=== PATIENT | female | born 1965 | race Caucasian/White ===

== ENCOUNTER 2022-06-22 09:53 | Emergency (ER) | payer OTHER, SELFPAY ==
[2022-06-22 10:01] VITALS: BP 132/76; PULSE 117; RESP 20; TEMP 36.7; O2SAT 98
--- NOTE | 2022-06-22 10:47 | ED.SKABFB ---
HPI - Skin/Abscess/Foreign Bdy General Chief complaint: Skin/Abscess/Foreign Body Stated complaint: ?abscess to R axilla Time Seen by Provider: 06/22/22 09:59 History of Present Illness HPI narrative: Patient is a 57-year-old female here for evaluation of a lesion to her right axilla that developed about a week ago. She states that the area is tender to palpation, warm and red. She states that she had a friend poked the area with a needle and no fluid returned came out. She presents today due to increased pain and swelling around the lesion. She has had 1 abscess in the past on her leg, but denies history of axillary abscesses for hidradenitis suppurativa. She has a history of diabetes. No fevers, nausea, vomiting today. Related Data Allergies Allergy/AdvReac Type Severity Reaction Status Date / Time No Known Allergies Allergy Verified 06/22/22 10:03 Review of Systems Review of Systems: Gen: Denies fevers or chills Eyes: Denies eye pain or visual change ENT: Denies congestion Respiratory: Denies shortness of breath or cough CV: Denies chest pain or palpitations GI: Denies abdominal pain nausea, emesis or diarrhea : denies burning, urgency, frequency or hematuria Musculoskeletal: Denies back pain or muscle pain Neuro: Denies numbness, tingling, weakness or focal weakness Skin: Reports lesion to right axilla Except as documented, all other systems reviewed and negative Exam Narrative: Gen: Alert, oriented, no acute distress Eyes: EOMI, no icterus Pulm: Respirations even and unlabored, symmetric thorax expansion, no audible stridor or visible cyanosis CV: Regular rate per telemetry GI: No distension, no voluntary/involuntary guarding Neuro: AOx4, moves all extremities without apparent difficulty or weakness, follows commands Skin: Patient has a 4 cm area of erythema to right axilla, with a central area of induration and fluctuance. Center area of the lesion has opened and crusted over. Psych: Normal mood/affect, insight/judgement good, adequate fund of knowledge, recent/remote memory intact Course Vital Signs Vital signs: Vital Signs Temperature 98.0 F 06/22/22 10:01 Pulse Rate 117 H 06/22/22 10:01 Respiratory Rate 20 06/22/22 10:01 Blood Pressure 132/76 06/22/22 10:01 Pulse Oximetry 98 06/22/22 10:01 Oxygen Delivery Room Air 06/22/22 10:01 Temperature 98.0 F 06/22/22 10:01 Pulse Rate 107 H 06/22/22 12:21 Respiratory Rate 16 06/22/22 12:21 Blood Pressure 122/89 06/22/22 12:21 Pulse Oximetry 98 06/22/22 12:21 Oxygen Delivery Room Air 06/22/22 10:01 Procedures Abscess I/D upper extremity: Date of Incision: 06/22/22 Time of Incision: 11:45 Side (if applicable): right Sedation/analgesia: none Local Anesthetic: lidocaine 1% and with epi Amount of anesthesia used (mL): 5 Technique: incised with #11 blade and probed loculations Amount of fluid expressed (mL): 3 Irrigation: No Packing used?: none I&D Results: Pus and Blood Abcess I&D Additional Comments: cleansed with Betadine prior to incision MDM - Skin/Abscess/Foreign Bdy MDM Narrative Medical decision making narrative: Patient is a patient in your female here for evaluation of what appears to be an abscess to her right axillary region. Here, she is nontoxic-appearing, she is slightly tachycardic, but afebrile. No systemic symptoms. [id number] ultrasound reveals a small pocket of possible fluid collection, so it was decided to proceed with an I&D. The area was anesthetized with 1% lidocaine with epinephrine, patient was provided with [place] prior. Single stab incision was made with return of purulent material and blood. Patient's pain improved afterwards. She will be discharged on oral antibiotics, and was given reasons to return to the ED. Discharge Plan Discharge Clinical Impression: Abscess of axilla, right Patient Disposition: Riki
[2022-06-22] MEDS: HYDROcodone/acetaminophen (*CRX) 5-325 MG TABLET 1 TAB PO (11:10)
[2022-06-22] MEDS: LIDOCAINE/PRILOCAINE CREAM 2.5-2.5% TUBE 1 EACH TOPICAL (11:10)
--- NOTE | 2022-06-22 11:15 | PC.NURSE ---
Patient report received from WOLF Yu. All questions answered and care of patient assumed. Patient resting quietly in stretcher with call-light within reach and spouse at bedside. I&D kit at bedside. Lido applied. Will continue to address needs as they arise.
[2022-06-22] MEDS: LIDO 1%/EPINEPHRINE 1:100,000 20 ML VIAL 5 ML INFILTRATE (11:38)
[2022-06-22 12:21] VITALS: BP 122/89; PULSE 107; RESP 16; O2SAT 98
== END 2022-06-22 12:23 | disposition home or self-care (01) ==
PROVIDERS: Emergency Provider Emergency Medicine; PCP Physician Assistant
DX: L02.411 Cutaneous abscess of right axilla (principal)
CPT/HCPCS: 10060; 99283; A9270

== ENCOUNTER 2025-03-04 12:29 | Outpatient (CLI) | payer OTHER, SELFPAY ==
--- OUTSIDE RECORDS SUMMARY | 2025-03-04 12:33 | XMS_ITS | CONTINUITY OF CARE DOCUMENT ---
Author Name renata yanez Address Unknown Organization [facility] Address [address] [place] [address] Phone [phone] Care Team Providers Care Deli Associate Name Role Phone Memo Sargent MD Unavailable SARI PAYTON MD Unavailable Brii Smith MD Unavailable [phone] PROBLEMS Condition Status Date Provider Notes HYPERTENSION-01/08 ECHO EF 60 active ? Mini Pitt MD DIABETES MELLITUS active Lexie Pitt MD HYPERCHOLESTEROLEMIA active Lexie Pitt MD CHEST PAIN-01/08 NUC NL active ? Lexie nina MD ASTHMA-01/08 PULM FUNC MILD RESTRICTION active ? Lexie Pitt MD ANEMIA - IRON DEFICIENT active Lexie gallegos MD RENAL ARTERY STENOSIS 01/08 R EN DUP NL completed - Anna Ventimiglia HIDE BUFFER BARBARA, adult active Anna Ventimiglia HIDE BUFFER Peripheral artery disease active Anna Sea timiglia HIDE BUFFER Nicotine dependence active Anna Ventimigl ia HIDE BUFFER Obesity active Anna Ventimiglia HIDE BUFFER Claudication active Memo Sargent MD ENCOUNTERS Date Type Provider Location Encounter Diag nosis 0 - 0 In-person encounter Office Visit Memo Sargent MD [facility] Claudication 8 - 9 In-person encounter Office Visit Memo Sargent MD [facility] RENAL ARTERY STENOSIS 01/08 VON DUP NLOSA, adultPeripheral artery diseaseNicotine dependenceObesity 9 - 1 In-person encounter Office Visit Lexie Pitt MD [facility] HYPERTENSION-01/08 ECHO EF 60CHEST PAIN-01/08 NUC NLASTHMA-01/08 PULM FUNC MILD RESTRICTION 9 - 0 In-person encounter Office Visit Lexie Pitt MD [facility] HYPERTENSION-01/08 ECHO EF 60DIABETES MELLITUSHYPERCHOLESTEROLEMIACHEST PAIN-01/08 NUC NLASTHMA-01/08 PULM FUNC MILD RESTRICTIONANEMIA - IRON DEFICIENT VITAL SIGNS Date Observation Value Provider Body Mass Index (Ratio) 42.60 kg/m2 Oxana Sargent MD blood pressure, cuff size large Colt rr blood pressure, diastolic 99 mm[Hg] Ja rret blood pressure, systolic 151 mm[Hg] Jar ret pulse rate 88 /min Iván oxygen saturation, oximetry 99 % [facility] respiratory rate E&M 16 /min Iván weight E&M 256 [lb_av] [facility] y height E&M 65 [in_i] [facility] y Body Mass Index (Ratio) 42.76 kg/m2 Oxana Sargent MD blood pressure, diastolic 89 mm[Hg] Li nkLogic blood pressure, systolic 154 mm[Hg] Geno kLogic blood pressure, cuff size large Colt rret blood pressure, diastolic 89 mm[Hg] Ja rret blood pressure, systolic 154 mm[Hg] Jar ret pulse rate 90 /min oxygen saturation, oximetry 99 % respiratory rate E&M 16 /min weight E&M 257 [lb_av] y height E&M 65 [in_i] Iván y Body Mass Index (Ratio) 49.27 kg/m2 Caldera i Ria blood pressure, diastolic 84 mm[Hg] Ke rri Ria blood pressure, systolic 132 mm[Hg] Geno ri Ria pulse rate 94 /min Yasmeen Alfredo romeer oxygen saturation, oximetry 98 % Yasmeen Ria respiratory rate E&M 20 /min Yasmeen G calos weight E&M 295 [lb_av] Yasmeen Alfredo lder Body Mass Index (Ratio) 49.10 kg/m2 Vashti Godoy blood pressure, diastolic, left arm 86 mm [Hg] Bere Godoy blood pressure, systolic, left arm 142 mm [Hg] Bere Godoy blood pressure, diastolic, right arm 82 m m[Hg] Bere Godoy blood pressure, systolic, right arm 143 m m[Hg] Bere Godoy blood pressure, diastolic 86 mm[Hg] Na maria del carmen Godoy blood pressure, systolic 142 mm[Hg] Farzana iban Godoy pulse rate 87 /min Bere Godoy oxygen saturation, oximetry 98 % Bere Godoy respiratory rate E&M 20 /min Bere Godoy weight E&M 294 [lb_av] Bere Godoy height E&M 65 [in_i] Bere Godoy ALLERGIES Allergy Name Onset Date Reaction Criticality Status MUSHROOMS High Criticality active RESULTS Date Observation Value Provider Reference Range Interpretation Location B-type natriuretic peptide <5.0 [facility] alanine [facility]), [facility] 174 [facility] aspartate aminotransferase (SGOT), serum 356 1/L [facility] creatinine, serum 1.07 mg/dL Eunice Murphy potassium, serum 3.5 mmol/L [facility] sodium, serum 144 mmol/L Eunice Murphy HISTORY OF MEDICATION USE Medication Status Instructions Dates Provider Indications Com ments buspirone 10 mg tablet active Anna Ventimiglia HIDE BUFFER metformin 1,000 mg tablet active Anna Ventimiglia HIDE BUFFER pioglitazone 45 mg tablet active Anna Ventimiglia HIDE BUFFER venlafaxine 150 mg capsule,extended release 24hr active Anna Ventimiglia HIDE BUFFER Jardiance 25 mg tablet active Anna Ventimiglia HIDE BUFFER Farxiga 10 mg tablet active Anna Ventimiglia HIDE BUFFER naproxen 500 mg tablet active Anna Ventimiglia HIDE BUFFER Januvia 100 mg tablet active Anna Ventimiglia HIDE BUFFER simvastatin 20 mg tablet active Anna Ventimiglia HIDE BUFFER dicyclomine 20 mg tablet active Anna Ventimiglia HIDE BUFFER chlorthalidone 25 mg tablet active Anna Ventimiglia HIDE BUFFER glipizide 10 mg tablet active Anna Ventimiglia HIDE BUFFER omeprazole 20 mg capsule,delayed release(DR/EC) active Anna Ventimiglia HIDE BUFFER gabapentin 300 mg capsule active Anna Ventimiglia HIDE BUFFER cyclobenzaprine 10 mg tablet active Anna Ventimiglia HIDE BUFFER losartan 100 mg tablet active Anna Ventimiglia HIDE BUFFER simvastatin 20 mg tablet completed by mouth every night - Anna Ventimiglia HIDE BUFFER metformin 500 mg tablet completed 1 twice a day - Anna Ventimiglia HIDE BUFFER PROAIR HFA 108 completed as needed - Anna Ventimiglia HIDE BUFFER felodipine 10 mg tablet extended release 24 hr completed 1 once a day - Anna Ventimiglia HIDE BUFFER Celexa 40 mg tablet completed 1 once a day - Anna Ventimiglia HIDE BUFFER MULTIVITAMINS ORAL CAPSULE completed 1 tablet once a day - Anna Ventimiglia HIDE BUFFER chlorthalidone 25 mg tablet completed once a day - Anna Ventimiglia HIDE BUFFER naproxen 500 mg tablet completed as needed - Anna Ventimiglia HIDE BUFFER SOCIAL HISTORY Date Observation Value Provider personal history of marijuana use no Memo Sargent MD drug use no Memo Sargent MD alcohol use no Memo Sargent MD smoking, year quit 2009 Memo bah MD smoking history, tot al pack/year 80 Memo Sargent MD smoking history, tot al pack/day 1 Memo Sargent MD cigarette use yes Memo Beth smoking status Current every day smoker U mat Sargent MD personal history of marijuana use no Anna Ventimiglia HIDE BUFFER drug use no Anna Ventimig cherri HIDE BUFFER smoking history, tot al pack/day 1 Anna Ventimiglia HIDE BUFFER cigarette use yes Anna Ventimi glia HIDE BUFFER alcohol use no Anna Ventimig cherri HIDE BUFFER smoking status Current every day smoker A ginger Ventimiglia [facility] social history reviewed E&M reviewed Andres Laws RN smoking history, tot al pack/year 80 Yasmeen Rollins social history E&M Marital Statu s: E thnicity: Lexie Pitt MD social history reviewed E&M reviewed Lexie Pitt MD smoking history, tot al pack/year 40 Bere Godoy smoking, year quit 2009 Bere barker smoking status former smoker Bere gonzalez MENTAL STATUS Date Observation Value Provider assessment of judgme nt and insight E&M Alert and oriented to time, place and person. Mood and affect are normal. Andres Laws RN assessment of judgme nt and insight E&M Alert and oriented to time, place and person. Mood and affect are normal. Lexie Pitt MD FAMILY HISTORY Family Member Condition Mother Stroke/CVA Mother [place] female <65 INSURANCE PROVIDERS Payer name Policy type / Coverage type [place] [employer] Medicaid [id number] ADVANCE DIRECTIVES Name Date DISCUSSED - NO DECISION MADE TREATMENT PLAN Date Name Performer Cardiology:CT-AIF R ight Lower Extremity: 1 . Patent inflow 2 . Patent outflow 3 . Patent 3 vessel runoff L eft Lower Extremity: 1 . Patent inflow 2 . Patent outflow 3 . Patent 3 vessel runoff A bdomen/Pelvis: 1 . No acute abdominal pelvic process. 2 . Hepatic steatosis, hepatomegaly and possible early changes of cirrhosis. At present I would not continue with w/u as the CT-AIF was normal R ecommend she get neurology w.u Memo Sargent MD Cardiology Memo Sargent MD Cardiology Memo Sargent MD Cardiology:BP 154/89 c ontinue present medication regimen W ill trend and if remains elevated will adjust medication T he following medications were removed from the medication list: Chlorthalidone 25 Mg Tablet (Chlorthalidone) ..... Once a day Felodipine 10 Mg Tablet Extended Release 24 Hr (Felodipine) ..... 1 once a day Her updated medication list for this problem includes: Chlorthalidone 25 Mg Tablet (Chlorthalidone) Losartan 100 Mg Tablet (Losartan) [facility] Cardiology:She has p ain in the left groin at rest and with ambulation S he had JR done that showed severe PAD W ill do CT AIF and f/u after [facility] Cardiology:weight loss encourage d [facility] Cardiology:on multip le medications and insulin m anaged by primary team T he following medications were removed from the medication list: Metformin 500 Mg Tablet (Metformin) ..... 1 twice a day Her updated medication list for this problem includes: Metformin 1,000 Mg Tablet (Metformin) Pioglitazone 45 Mg Tablet (Pioglitazone) Jardiance 25 Mg Tablet (Empagliflozin) Farxiga 10 Mg Tablet (Dapagliflozin propanediol) Januvia 100 Mg Tablet (Sitagliptin phosphate) Glipizide 10 Mg Tablet (Glipizide) Losartan 100 Mg Tablet (Losartan) Anna Ventimiglia HIDE BUFFER Cardiology:planned f or upcoming labs o n statin T he following medications were removed from the medication list: Simvastatin 20 Mg Tablet (Simvastatin) ..... By mouth every night & #13;Her updated medication list for this problem includes: Simvastatin 20 Mg Tablet (Simvastatin) Anna Ventimiglia [facility] Cardiology:unable to tolerate cp ap Anna Ventimiglia [facility] Cardiology:cessation encouraged Anna Ventimiglia HIDE BUFFER Date Name CT Angio AIF (Abd, l ower extremities) Sleep Study Renal Artery Duplex Full PFT STR - Adenosine Complete Echo HISTORY OF PROCEDURES Procedure Date Procedure Name Provider Procedure Notes S tatus EKG Memo Sargent MD completed EKG Lexie Pitt MD complet ed DLCO - 29223 Lexie Pitt MD compl eted FRC - 55590 Lexie Pitt MD comple sofi FVC - 42247 Lexie Pitt MD comple sofi EKG Lexie Pitt MD complet ed
--- OUTSIDE RECORDS SUMMARY | 2025-03-04 12:34 | XMS_ITS | Clinical Summary ---
Author Organization [facility] Address [address] [place] [address] Care Team Providers Care Engagement Specialist Name Role Phone Jhonny Rojas Primary Care Provider + Allergies No known active allergies Medications benzocaine 20 % topical spray Apply topically 4 (four) times daily as needed for Pain. 57 g Active Social History Tobacco Use Types Packs/Day Years Used Date Smoking Tobacco: Every Day Cigarettes Alcohol Use Standard Drinks/Week Comments Yes 0 (1 standard drink = 0.6 oz pur e alcohol) Comments No Sex and Gender Information Value Date Recorded Sex Assigned at Not on file Legal Sex Female 2:08 PM CDT Gender Identity Not on file Sexual Orientation Not on file Last Filed Vital Signs Vital Sign Reading Time Taken Comments Blood Pressure 114/57 07/29/2021 5:28 PM CDT Pulse 76 07/29/2021 5:28 PM CDT Temperature 36.7 C (98 F) 07/29/2021 2:15 PM CDT Respiratory Rate 16 07/29/2021 5:28 PM CDT Oxygen Saturation 98% 07/29/2021 5:28 PM CDT Inhaled Oxygen Concentration - - Weight 123.4 kg (272 lb) 07/29/2021 2:15 PM CDT Height 165.1 cm (5' 5 ) 07/29/2021 2:15 PM CDT Body Mass Index 45.26 07/29/2021 2:15 PM CDT Plan of Treatment Health Maintenance Due Date Last Done Comments Cervical Cancer Screening Pa p Smear (Age 30 to 64) Every 3 Years 1963 Colorectal Cancer Screening Colonoscopy (10 Years) 1963 Annual Physical 1966 Hepatitis C 1981 Cervical Cancer Screening Quintin p with HPV Testing (Age 30 to 64) Every 5 Years 1993 Cervical Cancer Screening wi th HPV 1993 Mammogram Screening 2003 Zoster Vaccines (1 of 2) 2013 DTaP, Tdap and Td Vaccines ( 1 - Tdap) 09/29/2014 09/28/2014, 09/28/2014 Pneumococcal Vaccine: 50+ Years (2 of 2 - PCV) 09/28/2015 09/28/2014 COVID-19 Vaccine (3 - 2023-2 5 season) 2024 04/04/2021, 03/01/2021 RSV Immunization or 60+ Years (1 - 1-dose 75+ series) 2038 Meningococcal B Vaccine Aged Out No l onger eligible based on patient's age to complete this topic Meningococcal Vaccine Aged Out No praveena william eligible based on patient's age to complete this topic RSV Immunizations Under 20 Months Aged Out No longer eligible b ased on patient's age to complete this topic Insurance [employer] Care Teams Engagement Specialist Relationship Specialty Start Date End Date Jhonny Rojas PA PCP - General PHYSICIAN SENIOR GRAPHIC DESIGNER 07/29/21
--- OUTSIDE RECORDS SUMMARY | 2025-03-04 12:34 | XMS_ITS | Data Portability ---
Author Organization [facility] [place] [facility] Address [address] [place] [address] Care Team Providers Care Rating Officer Name Role Phone BRII SMITH Primary Care Provider Assessment No assessment recorded. Plan of Treatment Reminders Order Date Submit Date Provider Last Modified By Organization Details Last Modified Time Details Appointments ANY 30 2024 02:00P M Brii Smith MD Not available Not available Not available Lab albumin/c reatinine , mass ratio, urine 2024 025 [facility], [address] [place] [address], [address], [place], [address], 02/23/2025 12:50:49 lipid panel, serum 2024 025 [facility], [address] [place] [address], [address], [place], [address], 02/23/2025 12:50:49 CMP, serum or plasma 2024 025 [facility], [address] [place] [address], [address], [place], [address], 02/23/2025 12:50:48 albumin/c reatinine , mass ratio, urine 2024 025 [facility], [address] [place] [address], [address], [place], [address], 03/03/2025 10:21:50 lipid panel, serum 2024 025 [email or web address], [address], [address], [place], [address], 01/13/2025 10:57:50 CMP, serum or plasma 2024 025 [email or web address], [address], [address], [place], [address], 01/13/2025 10:57:50 lipid panel, serum 2023 024 [facility], [address], [address], [place], [address], 07/25/2024 09:13:34 HbA1c (hemoglob in A1c), blood 2023 024 [email or web address] In-Office Order, Internal Use Only DO Not Attach Compendium DO Not Attach Compendium, Do Not Delete/merge, [id number] 07/22/2024 15:57:23 CMP, serum or plasma 2023 024 [facility], [address], [address], [place], [address], 07/25/2024 09:13:35 albumin/c reatinine , mass ratio, urine 2023 024 [facility], [address], [address], [place], [address], 07/25/2024 09:13:33 CMP, serum or plasma 2023 024 [facility], [address], [address], [place], [address], 04/23/2024 06:20:04 lipid panel, serum 2023 024 [facility], [address], [address], [place], [address], 04/23/2024 06:20:04 CBC 2023 024 [facility], [address], [address], [place], [address], 04/23/2024 06:20:05 albumin/c reatinine , mass ratio, urine 2023 024 [facility], [address] [facility] [address], [address], [place], [address], 04/23/2024 06:20:03 HbA1c (hemoglob in A1c), blood 2023 024 [email or web address] In-Office Order, Internal Use Only DO Not Attach Compendium DO Not Attach Compendium, Do Not Delete/merge, [id number] 04/21/2024 18:05:45 Referral None recorded. Procedures None recorded. Surgeries None recorded. Imaging audiogram + tympanogr am - ringing in left ear, hearing loss left ear, hearing loss in left ear since baby, ringing for two weeks [address] [facility] (Audiology), [address] [place] [address], [address], 02/23/2025 14:27:23 MRI, lumbar spine, w/o contrast [address] [facility] ([facility] Sched[facility]), [address] [place], [address], 02/16/2025 13:17:42 MAMMO, screening , digital, bilateral 2024 025 [facility] ([facility] Call Scheduling), [address] [place], [address], 12/02/2024 12:36:22 MRI, lumbar spine, w/o contrast 2023 024 [facility] ([facility] Call Scheduling), [address] [place], [address], 11/30/2024 21:39:36 Medication Orders simvastat in 40 mg tablet 2024 025 [facility], [address] [place] [address], [id number], 02/23/2025 14:48:27 Daily-Vit e (with folic acid) 400 mcg tablet 2024 025 [facility], [address] [place] [address], [id number], 02/23/2025 14:41:54 cyclobenz aprine 10 mg tablet 2024 025 [facility], [address] [place] [address], [id number], 03/01/2025 13:34:22 naproxen 500 mg tablet 2024 025 [facility], [address] [place] [address], [id number], 03/01/2025 13:34:24 chlorthal idone 25 mg tablet 2024 025 [facility], [address] [place] [address], [id number], 03/01/2025 13:34:17 losartan 100 mg tablet 2024 025 [facility], [address] [place] [address], [id number], 03/01/2025 13:34:27 potassium chloride ER 10 mEq tablet,ex tended release 2024 025 [facility], [address] [place] [address], [id number], 03/01/2025 13:34:19 buspirone 10 mg tablet 2024 025 [facility], [address] [place] [address], [id number], 03/01/2025 13:34:26 venlafaxi ne ER 150 mg capsule,e xtended release 24 hr 2024 025 [facility], [address] [place] [address], [id number], 03/01/2025 13:34:23 dicyclomi ne 20 mg tablet 2024 025 [facility], [address] [place] [address], [id number], 03/01/2025 13:34:16 famotidin e 20 mg tablet 2024 025 [facility], [address] [place] [address], [id number], 03/01/2025 13:34:23 omeprazol e 20 mg capsule,d elayed release 2024 025 [facility], [address] [place] [address], [id number], 03/01/2025 13:34:21 Farxiga 10 mg tablet 2024 025 [facility], [address] [place] [address], [id number], 03/01/2025 13:34:17 glipizide 10 mg tablet 2024 025 [facility], [address] [place] [address], [id number], 03/01/2025 13:34:18 Januvia 100 mg tablet 2024 025 [facility], [address] [place] [address], [id number], 03/01/2025 13:34:27 pioglitaz one 45 mg tablet 2024 025 [facility], [address] [place] [address], [id number], 03/01/2025 13:34:20 gabapenti n 300 mg capsule 2024 025 [facility], [address] [place] [address], [id number], 03/01/2025 13:34:14 Basaglar KwikPen U-100 Insulin 100 unit/mL (3 mL) subcutane ous 2024 025 [facility], [address] [place] [address], [id number], 02/08/2025 10:01:55 alcohol swabs 2024 025 [facility], [address] [place] [address], [id number], 03/01/2025 13:34:20 Farxiga 10 mg tablet 2024 025 [facility], [address] [place] [address], [id number], 01/26/2025 10:27:35 glipizide 10 mg tablet 2024 025 [facility], [address] [place] [address], [id number], 01/26/2025 10:27:31 Januvia 100 mg tablet 2024 025 [facility], [address] [place] [address], [id number], 02/08/2025 10:01:58 Lantus U-100 Insulin 100 unit/mL subcutane ous solution 2024 025 [facility], [address] [place] [address], [id number], 11/27/2024 15:37:19 metformin 1,000 mg tablet 2024 025 [facility], [address] [place] [address], [id number], 02/23/2025 12:19:03 OneTouch Verio test strips [address] [place] [address] Pharmacy, [address] [place] [address], [id number], 11/27/2024 15:12:07 pioglitaz one 45 mg tablet [address] [place] [address] Pharmacy, [address] [place] [address], [id number], 01/26/2025 10:27:39 famotidin e 20 mg tablet [address] [place] [address] Pharmacy, [address] [place] [address], [id number], 01/26/2025 10:27:45 omeprazol e 20 mg capsule,d elayed release 2024 025 [facility], [address] [place] [address], [id number], 01/26/2025 10:27:31 simvastat in 40 mg tablet 2024 025 [facility], [address] [place] [address], [id number], 03/01/2025 13:34:20 chlorthal idone 25 mg tablet [address] [place] [address] Pharmacy, [address] [place] [address], [id number], 01/26/2025 10:27:40 losartan 100 mg tablet [address] [place] [address] Pharmacy, [address] [place] [address], [id number], 01/26/2025 10:27:44 potassium chloride ER 10 mEq tablet,ex tended release [address] [place] [address] Pharmacy, [address] [place] [address], [id number], 01/26/2025 10:27:38 buspirone 10 mg tablet 2024 025 [facility], [address] [place] [address], [id number], 01/26/2025 10:27:37 venlafaxi ne ER 150 mg capsule,e xtended release 24 hr 2024 025 [facility], [address] [place] [address], [id number], 01/26/2025 10:27:37 gabapenti n 300 mg capsule 2024 025 [facility], [address] [place] [address], [id number], 11/27/2024 15:12:07 Ozempic 0.25 mg or 0.5 mg (2 mg/3 mL) subcutane ous pen injector 2023 024 [facility], [address] [place] [address], [id number], 11/18/2024 16:48:32 Ozempic 0.25 mg or 0.5 mg (2 mg/3 mL) subcutane ous pen injector 2023 025 [facility], [address] [place] [address], [id number], 11/19/2024 10:06:23 Farxiga 10 mg tablet 2023 024 [facility], [address] [place] [address], [id number], 10/22/2024 11:59:27 glipizide 10 mg tablet 2023 024 [facility], [address] [place] [address], [id number], 10/22/2024 11:59:27 Januvia 100 mg tablet 2023 024 [facility], [address] [place] [address], [id number], 10/22/2024 11:59:30 pioglitaz one 45 mg tablet 2023 024 [facility], [address] [place] [address], [id number], 10/22/2024 11:59:26 Lantus U-100 Insulin 100 unit/mL subcutane ous solution 2023 [facility], [address] [place] [address], [id number], 09/17/2024 11:37:08 famotidin e 20 mg tablet 2023 024 [facility], [address] [place] [address], [id number], 10/22/2024 11:59:31 omeprazol e 20 mg capsule,d elayed release 2023 024 [facility], [address] [place] [address], [id number], 10/22/2024 11:59:33 chlorthal idone 25 mg tablet 2023 024 [facility], [address] [place] [address], [id number], 10/22/2024 11:59:28 losartan 100 mg tablet 2023 024 [facility], [address] [place] [address], [id number], 10/22/2024 11:59:31 potassium chloride ER 10 mEq tablet,ex tended release 2023 024 [facility], [address] [place] [address], [id number], 10/22/2024 11:59:26 buspirone 10 mg tablet 2023 024 [facility], [address] [place] [address], [id number], 10/22/2024 11:59:29 venlafaxi ne ER 150 mg capsule,e xtended release 24 hr 2023 024 [facility], [address] [place] [address], [id number], 10/22/2024 11:59:24 gabapenti n 300 mg capsule 2023 024 [facility], [address] [place] [address], [id number], 10/22/2024 11:59:25 Lantus U-100 Insulin 100 unit/mL subcutane ous solution 2023 024 [facility], [address] [place] [address], [id number], 04/21/2024 17:11:25 Farxiga 10 mg tablet 2023 024 [facility], [address] [place] [address], [id number], 09/07/2024 10:29:01 glipizide 10 mg tablet 2023 024 [facility], [address] [place] [address], [id number], 09/07/2024 10:29:03 Januvia 100 mg tablet 2023 024 [facility], [address] [place] [address], [id number], 09/07/2024 10:29:04 metformin 1,000 mg tablet 2023 024 [facility], [address] [place] [address], [id number], 02/23/2025 12:19:03 pioglitaz one 45 mg tablet 2023 024 [facility], [address] [place] [address], [id number], 09/21/2024 10:34:51 famotidin e 20 mg tablet 2023 024 [facility], [address] [place] [address], [id number], 09/21/2024 10:34:50 omeprazol e 20 mg capsule,d elayed release 2023 024 [facility], [address] [place] [address], [id number], 09/21/2024 10:34:53 simvastat in 20 mg tablet 2023 024 [facility], [address] [place] [address], [id number], 11/18/2024 16:40:15 chlorthal idone 25 mg tablet 2023 024 [facility], [address] [place] [address], [id number], 08/21/2024 10:16:59 losartan 100 mg tablet 2023 024 [facility], [address] [place] [address], [id number], 09/07/2024 10:29:04 potassium chloride ER 10 mEq tablet,ex tended release 2023 024 [facility], [address] [place] [address], [id number], 04/21/2024 17:01:26 buspirone 10 mg tablet 2023 024 [facility], [address] [place] [address], [id number], 07/06/2024 11:34:48 venlafaxi ne ER 150 mg capsule,e xtended release 24 hr 2023 [facility], [address] [place] [address], [id number], 07/06/2024 11:34:45 gabapenti n 300 mg capsule 2023 024 [facility], [address] [place] [address], [id number], 07/06/2024 11:34:40 Patient TargetsNo targets recorded. Patient Instructions Encounter Date Encounter Id Patient Instructions Last Modified By Organization Details Last Modified Time 04/21/2024 [id number] A healthy lifestyle: care instructions [email or web address] Not available 04/21/2024 16:30:09 05/25/2024 [id number] A healthy lifestyle: care instructions [email or web address] Not available 05/25/2024 10:03:20 On the date of this encounter, I was immediately available to assist the resident/fellow in the care of the patient, and have reviewed and agree with the resident s findings and plan of care. ~MD jarrett [email or web address] Not available 05/28/2024 01:13:52 Reason for Referral None Reported. Results Created Date Observation Date Name Description Value Unit Range Abnormal Flag Note LastModifiedBy Organization Detail LastModifiedTime 04/21/2004/21/2024 HbA1c (hemo globi n A1c), blood HbA1c 12.0 Not Available In-Office Order Internal Use Only DO Not Attach Compendium DO Not Attach Compendium, Do Not Delete/merge, [id number] 04/21/2024 16:48:10 04/22/2004/23/2024 ALBUM IN/CR EATIN INE RATIO ,URIN E creatinine, urine 111.3 mg/dL notest ab. Not Available [facility] ([facility]) [address] [facility], [place], [address], 04/23/2024 06:20:03 04/22/2004/23/2024 ALBUM IN/CR EATIN INE RATIO ,URIN E albumin, urine 283.0 ug/mL notest ab. Not Available [facility] ([facility]) [address] [place], [address], 04/23/2024 06:20:03 04/22/20 24 04/23/2024 ALBUM IN/CR EATIN INE RATIO ,URIN E alb/creat ratio 254 mg/g_ creat 0-29 above high normal Jessica l: 0 - 29 Moder ately incre ased: 30 - 300 Sever gavin incre ased: >300 Not Available [facility] ([facility]) [address] [place], [address], 04/23/2024 06:20:03 04/22/20 24 04/23/2024 LIPID PANEL cholesterol, total 211 mg/dL 100-19 9 above high normal Not Available [facility] ([facility]) [address] [place], [address], 04/23/2024 06:20:04 04/22/20 24 04/23/2024 LIPID PANEL triglyceride s 477 mg/dL 0-149 above high normal Not Available [facility] ([facility]) [address] [place], [address], 04/23/2024 06:20:04 04/22/20 24 04/23/2024 LIPID PANEL HDL cholesterol 39 mg/dL >39 below low normal Not Available [facility] ([facility]) [address] [place], [address], 04/23/2024 06:20:04 04/22/20 24 04/23/2024 LIPID PANEL VLDL cholesterol cameron 79 mg/dL 5-40 above high normal Not Available [facility] ([facility]) [address] [place], [address], 04/23/2024 06:20:04 04/22/20 24 04/23/2024 LIPID PANEL LDL chol calc ([facility]) 93 mg/dL 0-99 Not Available [facility] ([facility]) [address] [place], [address], 04/23/2024 06:20:04 04/22/20 24 04/23/2024 COMP. METAB OLIC PANEL (14) glucose 231 mg/dL 70-99 above high normal Not Available [facility] ([facility]) [address] [place], [address], 04/23/2024 06:20:04 04/22/20 24 04/23/2024 COMP. METAB OLIC PANEL (14) BUN 26 mg/dL 8-27 Not Available [facility] ([facility]) [address] [place], [address], 04/23/2024 06:20:04 04/22/20 24 04/23/2024 COMP. METAB OLIC PANEL (14) creatinine 2.17 mg/dL 0.57-1 .00 above high normal Not Available [facility] ([facility]) [address] [facility], [place], [address], 04/23/2024 06:20:04 04/22/20 24 04/23/2024 COMP. METAB OLIC PANEL (14) eGFR 25 mL/mi n/1.7 3 >59 below low normal Not Available [facility] ([facility]) [address] [place], [address], 04/23/2024 06:20:04 04/22/20 24 04/23/2024 COMP. METAB OLIC PANEL (14) BUN/creatini ne ratio 12 12-28 Not Available [facility] ([facility]) [address] [place], [address], 04/23/2024 06:20:04 04/22/20 24 04/23/2024 COMP. METAB OLIC PANEL (14) sodium 137 mmol/ L 134-14 4 Not Available [facility] ([facility]) [address] [place], [address], 04/23/2024 06:20:04 04/22/20 24 04/23/2024 COMP. METAB OLIC PANEL (14) potassium 4.5 mmol/ L 3.5-5. 2 Not Available [facility] ([facility]) [address] [place], [address], 04/23/2024 06:20:04 04/22/20 24 04/23/2024 COMP. METAB OLIC PANEL (14) chloride 95 mmol/ L 96-106 below low normal Not Available [facility] ([facility]) [address] [facility] [place], [address], 04/23/2024 06:20:04 04/22/20 24 04/23/2024 COMP. METAB OLIC PANEL (14) carbon dioxide, total 24 mmol/ L 20-29 Not Available [facility] ([facility]) [address] [place], [address], 04/23/2024 06:20:04 04/22/20 24 04/23/2024 COMP. METAB OLIC PANEL (14) calcium 10.2 mg/dL 8.7-10 .3 Not Available [facility] ([facility]) [address] [place], [address], 04/23/2024 06:20:04 04/22/20 24 04/23/2024 COMP. METAB OLIC PANEL (14) protein, total 7.0 g/dL 6.0-8. 5 Not Available [facility] ([facility]) [address] [place], [address], 04/23/2024 06:20:04 04/22/20 24 04/23/2024 COMP. METAB OLIC PANEL (14) albumin 4.2 g/dL 3.8-4. 9 Not Available [facility] ([facility]) [address] [place], [address], 04/23/2024 06:20:04 04/22/20 24 04/23/2024 COMP. METAB OLIC PANEL (14) globulin, total 2.8 g/dL 1.5-4. 5 Not Available [facility] ([facility]) [address] [place], [address], 04/23/2024 06:20:04 04/22/20 24 04/23/2024 COMP. METAB OLIC PANEL (14) bilirubin, total 0.5 mg/dL 0.0-1. 2 Not Available [facility] ([facility]) [address] [place], [address], 04/23/2024 06:20:04 04/22/20 24 04/23/2024 COMP. METAB OLIC PANEL (14) alkaline phosphatase 80 IU/L 44-121 Not Available [facility] ([facility]) [address] [place], [address], 04/23/2024 06:20:04 04/22/20 24 04/23/2024 COMP. METAB OLIC PANEL (14) AST (SGOT) 46 IU/L 0-40 above high normal Not Available [facility] ([facility]) [address] [place], [address], 04/23/2024 06:20:04 04/22/20 24 04/23/2024 COMP. METAB OLIC PANEL (14) ALT (SGPT) 38 IU/L 0-32 above high normal Not Available [facility] ([facility]) [address] [place], [address], 04/23/2024 06:20:04 04/22/20 24 04/22/2024 CBC, PLATE LET, NO DIFFE RENTI AL WBC 9.5 x10e3 /uL 3.4-10 .8 Not Available [facility] ([facility]) [address] [place], [address], 04/23/2024 06:20:05 04/22/20 24 04/22/2024 CBC, PLATE LET, NO DIFFE RENTI AL RBC 5.64 x10e6 /uL 3.77-5 .28 above high normal Not Available [facility] ([facility]) [address] [place], [address], 04/23/2024 06:20:05 04/22/20 24 04/22/2024 CBC, PLATE LET, NO DIFFE RENTI AL hemoglobin 16.2 g/dL 11.1-1 5.9 above high normal Not Available [facility] ([facility]) [address] [place], [address], 04/23/2024 06:20:05 04/22/20 24 04/22/2024 CBC, PLATE LET, NO DIFFE RENTI AL hematocrit 50.1 % 34.0-4 6.6 above high normal Not Available [facility] ([facility]) [address] [place], [address], 04/23/2024 06:20:05 04/22/20 24 04/22/2024 CBC, PLATE LET, NO DIFFE RENTI AL MCV 89 fL 79-97 Not Available [facility] ([facility]) [address] [place], [address], 04/23/2024 06:20:05 04/22/20 24 04/22/2024 CBC, PLATE LET, NO DIFFE RENTI AL MCH 28.7 pg 26.6-3 3.0 Not Available [facility] ([facility]) [address] [place], [address], 04/23/2024 06:20:05 04/22/20 24 04/22/2024 CBC, PLATE LET, NO DIFFE RENTI AL MCHC 32.3 g/dL 31.5-3 5.7 Not Available [facility] ([facility]) [address] [place], [address], 04/23/2024 06:20:05 04/22/20 24 04/22/2024 CBC, PLATE LET, NO DIFFE RENTI AL RDW 14.4 % 11.7-1 5.4 Not Available [facility] ([facility]) [address] [facility], [place], [address], 04/23/2024 06:20:05 04/22/20 24 04/22/2024 CBC, PLATE LET, NO DIFFE RENTI AL platelets 214 x10e3 /uL 150-45 0 Not Available [facility] ([facility]) [address] [facility], [place], [address], 04/23/2024 06:20:05 07/22/20 24 07/22/2024 HbA1c (hemo globi n A1c), blood HbA1c 10.7 Not Available In-Office Order Internal Use Only DO Not Attach Compendium DO Not Attach Compendium, Do Not Delete/merge, [id number] 07/22/2024 15:19:57 07/24/20 24 07/25/2024 ALBUM IN/CR EATIN INE RATIO ,URIN E creatinine, urine 58.9 mg/dL notest ab. Not Available [facility] ([facility]) [address] [facility], [place], [address], 07/25/2024 09:13:33 07/24/20 24 07/25/2024 ALBUM IN/CR EATIN INE RATIO ,URIN E albumin, urine 68.2 ug/mL notest ab. Not Available [facility] ([facility]) [address] [facility], [place], [address], 07/25/2024 09:13:33 07/24/20 24 07/25/2024 ALBUM IN/CR EATIN INE RATIO ,URIN E alb/creat ratio 116 mg/g_ creat 0-29 above high normal Jessica l: 0 - 29 Moder ately incre ased: 30 - 300 Sever gavin incre ased: >300 Not Available [facility] ([facility]) [address] [facility], [place], [address], 07/25/2024 09:13:33 07/24/20 24 07/25/2024 LIPID PANEL cholesterol, total 201 mg/dL 100-19 9 above high normal Not Available [facility] ([facility]) [address] [place], [address], 07/25/2024 09:13:34 07/24/20 24 07/25/2024 LIPID PANEL triglyceride s 475 mg/dL 0-149 above high normal Not Available [facility] ([facility]) [address] [place], [address], 07/25/2024 09:13:34 07/24/20 24 07/25/2024 LIPID PANEL HDL cholesterol 35 mg/dL >39 below low normal Not Available [facility] ([facility]) [address] [place], [address], 07/25/2024 09:13:34 07/24/20 24 07/25/2024 LIPID PANEL VLDL cholesterol cameron 78 mg/dL 5-40 above high normal Not Available [facility] ([facility]) [address] [place], [address], 07/25/2024 09:13:34 07/24/20 24 07/25/2024 LIPID PANEL LDL chol calc ([facility]) 88 mg/dL 0-99 Not Available [facility] ([facility]) [address] [place], [address], 07/25/2024 09:13:34 07/24/20 24 07/25/2024 COMP. METAB OLIC PANEL (14) glucose 173 mg/dL 70-99 above high normal Not Available [facility] ([facility]) [address] [place], [address], 07/25/2024 09:13:35 07/24/20 24 07/25/2024 COMP. METAB OLIC PANEL (14) BUN 19 mg/dL 8-27 Not Available [facility] ([facility]) [address] [place], [address], 07/25/2024 09:13:35 07/24/20 24 07/25/2024 COMP. METAB OLIC PANEL (14) creatinine 1.15 mg/dL 0.57-1 .00 above high normal Not Available [facility] ([facility]) [address] [place], [address], 07/25/2024 09:13:35 07/24/20 24 07/25/2024 COMP. METAB OLIC PANEL (14) eGFR 54 mL/mi n/1.7 3 >59 below low normal Not Available [facility] ([facility]) [address] [facility] [place], [address], 07/25/2024 09:13:35 07/24/20 24 07/25/2024 COMP. METAB OLIC PANEL (14) BUN/creatini ne ratio 17 12-28 Not Available [facility] ([facility]) [address] [place], [address], 07/25/2024 09:13:35 07/24/20 24 07/25/2024 COMP. METAB OLIC PANEL (14) sodium 140 mmol/ L 134-14 4 Not Available [facility] ([facility]) [address] [place], [address], 07/25/2024 09:13:35 07/24/20 24 07/25/2024 COMP. METAB OLIC PANEL (14) potassium 4.9 mmol/ L 3.5-5. 2 Not Available [facility] ([facility]) [address] [place], [address], 07/25/2024 09:13:35 07/24/20 24 07/25/2024 COMP. METAB OLIC PANEL (14) chloride 98 mmol/ L 96-106 Not Available [facility] ([facility]) [address] [place], [address], 07/25/2024 09:13:35 07/24/20 24 07/25/2024 COMP. METAB OLIC PANEL (14) carbon dioxide, total 27 mmol/ L - Not Available [facility] ([facility]) [address] [place], [address], 07/25/2024 09:13:35 07/24/20 24 07/25/2024 COMP. METAB OLIC PANEL (14) calcium 10.4 mg/dL 8.7-10 .3 above high normal Not Available [facility] ([facility]) [address] [place], [address], 07/25/2024 09:13:35 07/24/20 24 07/25/2024 COMP. METAB OLIC PANEL (14) protein, total 7.4 g/dL 6.0-8. 5 Not Available [facility] ([facility]) [address] [place], [address], 07/25/2024 09:13:35 07/24/20 24 07/25/2024 COMP. METAB OLIC PANEL (14) albumin 4.4 g/dL 3.9-4. 9 Not Available [facility] ([facility]) [address] [place], [address], 07/25/2024 09:13:35 07/24/20 24 07/25/2024 COMP. METAB OLIC PANEL (14) globulin, total 3.0 g/dL 1.5-4. 5 Not Available [facility] ([facility]) [address] [place], [address], 07/25/2024 09:13:35 07/24/20 24 07/25/2024 COMP. METAB OLIC PANEL (14) bilirubin, total 0.6 mg/dL 0.0-1. 2 Not Available [facility] ([facility]) [address] [place], [address], 07/25/2024 09:13:35 07/24/20 24 07/25/2024 COMP. METAB OLIC PANEL (14) alkaline phosphatase 70 IU/L 44-121 Not Available [facility] ([place] [facility]) [address] [place], [address], 07/25/2024 09:13:35 07/24/20 24 07/25/2024 COMP. METAB OLIC PANEL (14) AST (SGOT) 56 IU/L 0-40 above high normal Not Available [facility] ([facility]) [address] [facility], [place], [address], 07/25/2024 09:13:35 07/24/20 24 07/25/2024 COMP. METAB OLIC PANEL (14) ALT (SGPT) 36 IU/L 0-32 above high normal Not Available [facility] ([facility]) [address] [place], [address], 07/25/2024 09:13:35 05/14/20 24 05/13/2024 eye exam* No observ ation record ed. [email or web address] Not Available 2023 13:01:22 11/30/19 25 11/30/2024 MRI, lumba r spine , w/o contr ast No observ ation record ed. [facility] [address] [place], [address], 01/14/2025 15:53:01 12/02/19 25 11/30/2024 MAMMO , scree ubaldo, digit al, bilat eral No observ ation record ed. [facility] [address] [place], [address], 01/14/2025 15:53:02 Result Notes None recorded. Problems Name Problem SNOMED Code Status Onset Date Resolution Date Notes Provider Name and Address Organization Details Recorded Time Obese 843575254 Active 2017 Not Available [facility] 4 13:57:20 Greater trochanter ic pain syndrome 8837699 Active 2017 Not Available [facility] 4 13:57:21 Screening for malignant neoplasm of breast Active 2017 Not Available [facility] 4 13:57:20 Hypokalemi a 82509352 Active 2017 Not Available [facility] 4 13:57:21 Strain of tendon of foot and ankle 520647476 Active 2017 Not Available [facility] 4 13:57:20 Candidiasi s of skin 31618227 Active 2017 Not Available [facility] 4 13:57:21 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 Not Available [facility] 4 13:57:20 Sprain of left ankle 3153788036662 9105 Active 2018 Not Available [facility] 4 13:57:20 Pain in left lower limb 672768768 Active 2018 Not Available [facility] 4 13:57:20 Type 2 diabetes mellitus 03815893 Active 2018 Not Available [facility] 4 13:57:21 Acute urinary tract infection 993377663 Active 2018 Not Available [facility] 4 13:57:21 Increased frequency of urination 928332079 Active 2018 Not Available [facility] 4 13:57:20 Screening for malignant neoplasm of colon Active 2018 Not Available [facility] 4 13:57:20 Acute sinusitis 17803417 Active 2018 Not Available [facility] 4 13:57:20 Foot joint - painful on movement 765549057 Active 2019 Not Available [facility] 4 13:57:20 Fracture of head of right radius 0870163718339 4107 Active 2019 Not Available [facility] 4 13:57:20 Fractured nasal bones 215010173 Active 2019 Not Available [facility] 4 13:57:20 Displaceme nt of tooth 750224960 Active 2019 Not Available [facility] 4 13:57:20 Bite of nonvenomou s spider Active 2020 Not Available [facility] 4 13:57:21 Trigger finger of left hand 5371115147670 9107 Active 2021 Not Available [facility] 4 13:57:20 Dysuria 76816965 Active 2021 Not Available [facility] 4 13:57:21 Vulvovagin itis 98798011 Active 2021 Not Available [facility] 4 13:57:21 HIV screening Active 2021 Not Available [facility] 4 13:57:20 Red blood cell count outside reference range 482207554 Active 2021 Not Available [facility] 4 13:57:20 Failure to lose weight 22982699 Active 2021 Not Available [facility] 4 13:57:21 Mucous retention cyst of cervix uteri 058023583 Active 2023 Eula Gibson MD Attn: Accounting ,[address] [place], [address] , [place] - [facility] 4 01:13:39 Neuropathy 142669026 Active Not Available [facility] 4 13:57:20 Uncontroll ed type 2 diabetes mellitus 846870627 Active Not Available [facility] 4 13:57:21 Hyperlipid emia 51862692 Active Not Available [facility] 4 13:57:21 Vitamin D deficiency 65189832 Active Not Available [facility] 4 13:57:20 Vitamin B12 level below reference range 871304441 Active Not Available [facility] 4 13:57:20 Essential hypertensi on 54199589 Active Not Available [facility] 4 13:57:21 Depressive disorder 53620263 Active Not Available [facility] 4 13:57:20 Gastroesop hageal reflux disease 547496313 Active Not Available [facility] 4 13:57:20 Bacterial vaginosis 165125188 Active Not Available [facility] 4 13:57:20 Irritable bowel syndrome with diarrhea 053727647 Active Not Available [facility] 4 13:57:20 Administra tion of influenza vaccine Active 2015 Not Available [facility] 4 13:57:21 Anxiety 99569477 Active 2015 Not Available [facility] 4 13:57:21 Injury of hip and thigh 075982315 Active 2016 Not Available [facility] 4 13:57:21 Problem Notes None recorded. Procedures Surgical History Date Name Laterality Status Provider Name and Address Organization Details Recorded Time 4 Date of Last Pap Smear completed Smitha Santana [place] [facility] 04/23/2024 16:27:54 3 Date of Last Mammogram completed Beth Nur MA [place] - [facility] 01/06/2024 14:02:55 8 Most Recent Mammogram completed Smitha Santana [place] - [facility] 11/10/2019 10:23:17 Tubal Ligation completed Ryanne Chew [place] - [facility] 11/29/2015 14:19:46 Caesarean Section completed Ryanne Chew MA [facility] 11/29/2015 14:19:46 Other completed Ryanne Chew MA [place] - [facility] 11/29/2015 14:19:46 Imaging Results Imaging Date Name Status LastModified by Organiz ation Details LastModified Time 05/13/2024 eye exam* completed [email or web address] Information no t available 05/14/2024 13:01:22 11/30/2024 MRI, lumbar spine, w/o contrast completed [facility] [address] [place], [address], 01/14/2025 15:53:01 11/30/2024 MAMMO, screening, digital, bilateral completed [facility] [address] [place], [address], 01/14/2025 15:53:02 Procedure Notes None recorded. Medical Equipment None Reported. Allergies Allergen ID Allergen Name Allergen Category Reaction Reaction Severity Criticality Documentation Date Start Date Code Code System Note Provider Name and Address Organization Details Recorded Time 64935 cultivate d mushroom extract food hives Not available Not available 11/29/2015 75160 17 RxNorm Ryanne Jeevan, ALEIDA null, [place] - [facility] 6 14:14:48 No known drug allergies Medications Name Sig Start Date Stop Date Status Note LastModified by Organization Details LastModified Time Prescript ion - Renewal 09/05 completed Not Available Not Available Not Available losartan 50 mg tablet 2QD 06/06 completed Not Available Not Available Not Available cyclobenz aprine 10 mg tablet TAKE ONE TABLET BY MOUTH NIGHTLY AT BEDTIME NEEDED 2024 active Not Available Not Available Not Avai lable amoxicill in 500 mg capsule 04/10 completed Not Available Not Available Not Available pioglitaz one 15 mg tablet Take 1 tablet every day by oral route in the morning for 30 days. 11/12 completed Not Available Not Available Not Available buspirone 5 mg tablet Take 1 tablet twice a day by oral route after meals for 30 days. 11/10 completed Not Available Not Available Not Available promethaz ine-DM 6.25 mg-15 mg/5 mL oral syrup Take 5 mL every 4 hours by oral route as needed for 10 days. 08/22 completed Not Available Not Available Not Available potassium chloride ER 10 mEq capsule,e xtended release TAKE ONE TABLET BY MOUTH EVERY MORNING 02/23 completed Not Available Not Available Not Available prednison e 10 mg tablet 2 tabs po twice daily for 2 days ; 1 tab twice daily for 5 days ; 0.5 tab twice dialy for 2 days ; 0.5 tab for one day .TAKE SECOND DOSE EVERY DAY AT NOON 12/25 completed Not Available Not Available Not Available doxycycli ne hyclate 100 mg capsule 12/25 completed Not Available Not Available Not Available citalopra m 40 mg tablet TAKE ONE TABLET BY MOUTH AT BEDTIME 09/05 completed Not Available Not Available Not Available ibuprofen 800 mg tablet Take 1 tablet 3 times a day by oral route with meals for 30 days. 08/03 completed on Naproxen Not Available Not Available Not Available fluconazo le 150 mg tablet Take 1 tablet every 72 hours by oral route for 9 days. 09/05 completed Not Available Not Available Not Available clarithro mycin 500 mg tablet 11/12 completed Not Available Not Available Not Available hydrocodo ne 5 mg-acetam inophen 325 mg tablet 08/28 completed Not Available Not Available Not Available meloxicam 15 mg tablet 11/12 completed Not Available Not Available Not Available phenazopy ridine 200 mg tablet Take 1 tablet 3 times a day by oral route for 2 days. 12/25 completed Not Available Not Available Not Available glipizide 10 mg tablet TAKE ONE TABLET BY MOUTH EVERY MORNING 2024 active Not Available Not Available Not Avai lable famotidin e 40 mg tablet Take 1 tablet every day by oral route before meals for 30 days. 02/03 completed Not Available Not Available Not Available Lantus U-100 Insulin 100 unit/mL subcutane ous solution 40 units subcu each evening 2024 active Not Available Not Available Not Avai lable venlafaxi ne ER 150 mg capsule,e xtended release 24 hr TAKE ONE CAPSULE BY MOUTH EVERY MORNING active Not Available Not Available No t Available pioglitaz one 45 mg tablet TAKE ONE TABLET BY MOUTH EVERY MORNING 2024 active Not Available Not Available Not Avai lable penicilli n V potassium 500 mg tablet Take 1 tablet twice a day by oral route for 10 days. 11/12 completed Not Available Not Available Not Available potassium chloride ER 10 mEq tablet,ex tended release TAKE ONE TABLET BY MOUTH EVERY MORNING 2024 active Not Available Not Available Not Avai lable metronida zole 500 mg tablet TAKE ONE TABLET BY MOUTH TWICE A DAY FOR SEVEN DAYS 11/12 completed Not Available Not Available Not Available chlorthal idone 25 mg tablet TAKE ONE TABLET BY MOUTH EVERY DAY 2024 active Not Available Not Available Not Avai lable acyclovir 400 mg tablet 09/05 completed Not Available Not Available Not Available ciproflox acin 500 mg tablet Take 1 tablet every 12 hours by oral route for 10 days. 04/24 completed Not Available Not Available Not Available sulfameth oxazole 800 mg-trimet hoprim 160 mg tablet Take 1 tablet every 12 hours by oral route for 10 days. 09/05 completed Not Available Not Available Not Available tramadol 50 mg tablet Take 1 tablet twice a day by oral route as needed for 30 days. 11/12 completed Not Available Not Available Not Available triamcino lone acetonide 0.1 % topical cream APPLY A THIN LAYER TO THE AFFECTED AREA(S) BY TOPICAL ROUTE 2 TIMES PER DAY 09/05 completed Not Available Not Available Not Available simvastat in 40 mg tablet one tab po q d 2024 active Not Available Not Available Not Avai lable famotidin e 20 mg tablet TAKE 1 TAB po bid 2024 active Not Available Not Available Not Avai lable dicyclomi ne 20 mg tablet TAKE 1 TABLET BY MOUTH FOUR TIMES DAILY BEFORE MEALS prn 2024 active Not Available Not Available Not Avai lable [facility] Ultra Test strips USE TO CHECK BLOOD SUGAR EVERY MORNING FOR DIABETES active Not Available Not Available No t Available baclofen 10 mg tablet Take 1 tablet 3 times a day by oral route as needed for 30 days. 11/12 completed Not Available Not Available Not Available triamcino lone acetonide 40 mg/mL suspensio n for injection Take 1 mL by injectio n route. 09/05 completed Not Available Not Available Not Available hydrocodo ne 7.5 mg-acetam inophen 325 mg tablet 08/28 completed Not Available Not Available Not Available cephalexi n 500 mg capsule 08/22 completed Not Available Not Available Not Available simvastat in 20 mg tablet TAKE ONE TABLET BY MOUTH EVERY DAY TO LOWER CHOLESTE ROL 11/18 completed Not Available Not Available Not Available metformin 1,000 mg tablet TAKE ONE TABLET BY MOUTH TWICE DAILY EVERY MORNING & EVENING FOR DIABETES 02/23 completed Not Available Not Available Not Available tobramyci n 0.3 % eye drops INSTILL ONE DROP INTO THE AFFECTED IN THE AFFECTED EYE EVERY 4 HOURS 02/23 completed Not Available Not Available Not Available buspirone 10 mg tablet TAKE TWO TABLETS BY MOUTH TWICE DAILY EVERY MORNING & EVENING AFTER MEALS active Not Available Not Available No t Available promethaz ine 25 mg tablet 09/05 completed Not Available Not Available Not Available gabapenti n 300 mg capsule TAKE 2 CAPSULES BY MOUTH THREE TIMES DAILY 2024 active Not Available Not Available Not Avai lable omeprazol e 20 mg capsule,d elayed release one capsule po bid 2024 active Not Available Not Available Not Avai lable felodipin e ER 10 mg tablet,ex tended release 24 hr TAKE ONE TABLET BY MOUTH EVERY DAY 09/05 completed Not Available Not Available Not Available hydroxyzi ne HCl 25 mg tablet TAKE ONE TABLET BY MOUTH THREE TIMES DAILY NEEDED 12/25 completed Not Available Not Available Not Available alcohol swabs USE TO CHECK BLOOD SUGAR TWICE DAILY EVERY MORNING & EVENING active Not Available Not Available No t Available pioglitaz one 30 mg tablet TAKE ONE TABLET BY MOUTH ONCE DAILY 11/12 completed Not Available Not Available Not Available cefdinir 300 mg capsule 09/05 completed Not Available Not Available Not Available losartan 100 mg tablet TAKE ONE TABLET BY MOUTH EVERY MORNING 2024 active Not Available Not Available Not Avai lable clotrimaz ole 1 % topical cream APPLY TO THE AFFECTED AND SURROUND ING AREAS OF SKIN BY TOPICAL ROUTE 2 TIMES PER DAY IN THE MORNING AND EVENING 09/05 completed Not Available Not Available Not Available dicyclomi ne 10 mg capsule 11/12 completed Not Available Not Available Not Available glipizide 5 mg tablet 11/12 completed Not Available Not Available Not Available naproxen 500 mg tablet TAKE 1 TABLET BY MOUTH BY MOUTH TWICE DAILY WITH FOOD as needed 2024 active Not Available Not Available Not Avai lable diazepam 5 mg tablet 06/06 completed Jason not prescrib e this Not Available Not Available Not Available amoxicill in 875 mg-potass ium clavulana te 125 mg tablet TAKE ONE TABLET BY MOUTH TWICE DAILY EVERY MORNING & EVENING FOR INFECTIO N 02/23 completed Not Available Not Available Not Available buspirone 15 mg tablet TAKE ONE TABLET BY MOUTH TWICE DAILY AFTER MEALS 09/05 completed Not Available Not Available Not Available diabetic supplies, [place] . active Not Available Not Available Not Available Daily-Vit e tablet TAKE ONE TABLET BY MOUTH EVERY DAY 09/05 completed Not Available Not Available Not Available potassium chloride ER 10 mEq tablet,ex tended release(p art/cryst ) TAKE ONE TABLET BY MOUTH EVERY MORNING 02/03 completed Not Available Not Available Not Available nitrofura ntoin monohydra te/macroc rystals 100 mg capsule Take 1 capsule twice a day by oral route for 10 days. 09/05 completed Not Available Not Available Not Available Sure Comfort Insulin Syringe 0.5 mL 31 gauge x 5/16 USE FOR INSULIN INJECTIO NS AT BEDTIME 09/05 completed Not Available Not Available Not Available Januvia 100 mg tablet TAKE 1 TABLET BY MOUTH EVERY MORNING FOR DIABETES 2024 active Not Available Not Available Not Avai lable calcium 600 mg (as carbonate )-vitamin D3 10 mcg (400 unit) tablet take one tablet by mouth twice daily 09/05 completed Not Available Not Available Not Available diclofena c 1 % topical gel APPLY 2 GRAM TO THE AFFECTED AREA(S) BY TOPICAL ROUTE 4 TIMES PER DAY 09/05 completed Not Available Not Available Not Available GaviLyte- N 420 gram oral solution 09/05 completed Not Available Not Available Not Available Tradjenta 5 mg tablet Take 1 tablet(s ) every day by oral route before meals for 30 days. 11/12 completed Not Available Not Available Not Available lidocaine 5 % topical ointment APPLY FOUR TIMES DAILY NEEDED FOR PAIN 09/05 completed Not Available Not Available Not Available Unifine Pentips Plus 31 gauge x 3/16 needle USE DIRECTED 09/05 completed Not Available Not Available Not Available TRUEplus Lancets 28 gauge USE DIRECTED TO TEST GLUCOSE. 09/05 completed Not Available Not Available Not Available Farxiga 10 mg tablet one tab po q d 2024 active Not Available Not Available Not Avai lable Pennsaid 20 mg/gram/a ctuation (2 %) topical soln in metered-d ose pump APPLY 2 PUMPS (40 MG) TO THE AFFECTED KNEE(S) BY TOPICAL ROUTE 2 TIMES PER DAY 09/05 completed Not Available Not Available Not Available Jardiance 25 mg tablet TAKE 1 TABLET BY MOUTH EVERY MORNING FOR DIABETES , will D/C it, due to same pharmaco logic action with braydenxigar , she also on fraxiga. And farxiga is cheaper. 04/21 completed Not Available Not Available Not Available Trulicity 0.75 mg/0.5 mL subcutane ous pen injector .75 mg subcu once a week 11/18 completed Not Available Not Available Not Available OneTouch Verio Flex Meter USE TO CHECK BLOOD SUGAR active Not Available Not Available No t Available Carloskathegilbert YostPen U-100 Insulin 100 unit/mL (3 mL) subcutane ous INJECT 42 UNITS UNDER THE SKIN AT BEDTIME FOR DIABETES 2024 active Not Available Not Available Not Avai lable TRUEplus Pen Needle 32 gauge x USE DIRECTED TO INJECT insulin active Not Available Not Available No t Available Ozempic 0.25 mg or 0.5 mg (2 mg/1.5 mL) subcutane ous pen injector active Not Available Not Available Not Available OneTouch Delica Plus Lancet 33 gauge USE TO CHECK BLOOD SUGAR TWICE DAILY 11/18 completed Not Available Not Available Not Available OneTouch Delica Plus Lancet 30 gauge USE TO CHECK BLOOD SUGAR EVERY MORNING 2024 active Not Available Not Available Not Avai lable Daily-Vit e (with folic acid) 400 mcg tablet TAKE ONE TABLET BY MOUTH EVERY DAY 2024 active Not Available Not Available Not Avai lable Ozempic 0.25 mg or 0.5 mg (2 mg/3 mL) subcutane ous pen injector .5 mg subcu once a week 11/18 completed Not Available Not Available Not Available Vitals Date Recorded Body height Oxygen saturation Oxygen saturation in Arterial blood by Pulse oximetry Heart rate Body mass index (BMI) Body weight Systolic blood pressure Diastolic blood pressure Provider Name and Address Organization Details Last Updated DateTime 165.1 cm 99 % 99 % 97 /min 41 kg/m2 583010. 52 g 128 mm[Hg] 78 mm[Hg] Brii Smith MD Attn: [place], [address], [place] - [facility] 14:59:56 Date Recorded Body height Body mass index (BMI) Body weight Systolic blood pressure Diastolic blood pressure Provider Name and Address Organization Details Last Updated DateTime 05/25/2024 165.1 cm 40.9 kg/m2 580408.7 2 g 140 mm[Hg] 72 mm[Hg] Smitha Santana MA [facility] 4 09:33:43 Date Recorded Body height Body mass index (BMI) Body weight Oxygen saturation Oxygen saturation in Arterial blood by Pulse oximetry Heart rate Systolic blood pressure Diastolic blood pressure Provider Name and Address Organization Details Last Updated DateTime 4 165.1 cm 41.6 kg/m2 637802. 09 g 99 % 99 % 93 /min 130 mm[Hg] 72 mm[Hg] Beth Nur MA [facility] 4 14:56:27 Date Recorded Body height Body temperature Body mass index (BMI) Body weight Oxygen saturation Oxygen saturation in Arterial blood by Pulse oximetry Heart rate Systolic blood pressure Diastolic blood pressure Provider Name and Address Organization Details Last Updated DateTime 5 165.1 cm 97.9 [degF] 40.3 kg/m2 871241. 35 g 99 % 99 % 99 /min 128 mm[Hg] 72 mm[Hg] Beth Nur MA [facility] 5 16:03:08 Date Recorded Body height Body mass index (BMI) Body weight Oxygen saturation Oxygen saturation in Arterial blood by Pulse oximetry Heart rate Body temperature Systolic blood pressure Diastolic blood pressure Provider Name and Address Organization Details Last Updated DateTime 5 165.1 cm 41.3 kg/m2 386179. 91 g 98 % 98 % 99 /min 98.1 [degF] 126 mm[Hg] 72 mm[Hg] Beth Nur MA [facility] 5 12:00:48 Social History Question Answer Notes LastModified by Organizat ion Details LastModified Time Tobacco Smoking Status Former Smoker down to 5 cigarettes a day Beth Nur MA [facility], [place] - [facility] 02/23/2025 11:59:31 Do You Have An Advance Directive? No Information not available 07/22/2018 What Is Your Level Of Alcohol Consumption? None Information not available 07/22/2018 Are You Blind Or Do You Have Difficulty Seeing? Yes Wear Glasses Information not available 02/03/2021 Is Blood Transfusion Acceptable In An Emergency? Yes Information not available 07/22/2018 What Is Your Level Of Caffeine Consumption? Heavy Information not available 12/25/2022 How Much Tobacco Do You Chew? None Information not available 07/22/2018 Are You Currently Employed? No Information not available 07/22/2018 Are You Deaf Or Do You Have Serious Difficulty Hearing? Yes Half Deaf In Right Ear Information not available 02/03/2021 What Type Of Diet Are You Following? REGULAR Information not available 07/22/2018 Which Illicit Or Recreational Drugs Have You Used? None Information not available 07/22/2018 Do You Or Have You Ever Used E-cigarettes Or Vape? Current User Of Electronic Cigarettes Information not available 02/23/2025 Education 10 Information no t available 07/22/2018 What Is Your Occupation? None Information not available 07/22/2018 Are There Any Guns Present In Your Home? No Information not available 02/03/2021 Live Alone Or With Others? With Others Information not available 07/22/2018 What Was The Date Of Your Most Recent Tobacco Screening? 02/23/2025 Information not available 02/23/2025 How Many Children Do You Have? 8 Information not available 07/22/2018 Performs Monthly Self-breast Exam? Yes Information not available 07/22/2018 Do You Use Protection During Sex? No Information not available 07/22/2018 What Is Your Relationship Status? Information not available 07/22/2018 Do You Use Your Seat Belt Or Car Seat Routinely? Yes Information not available 02/03/2021 Seat Belts Used Routinely Yes Information not available 07/22/2018 Are You Sexually Active? Yes Information not available 07/22/2018 Do You Have Smoke And Carbon Monoxide Detectors In Your Home? Yes Information not available 02/03/2021 At What Age Did You Start Smoking Tobacco? 6 Information not available 07/22/2018 Are You Passively Exposed To Smoke? Yes Information not available 02/03/2021 Do You Or Have You Ever Used Smokeless Tobacco? Never Used Smokeless Tobacco [email or web address] Information not available 11/09/2019 How Much Tobacco Do You Smoke? 0.5 PPD Information not available 12/25/2022 General Stress Level Low Information not available 07/22/2018 Do You Feel Stressed (tense, Restless, Nervous, Or Anxious, Or Unable To Sleep At Night)? [id number] Information not available 02/03/2021 Do You Use Any Illicit Or Recreational Drugs? No Information not available 02/03/2021 Do You Use Sunscreen Routinely? No Information not available 07/22/2018 Has Tobacco Cessation Counseling Been Provided? Yes [email or web address] Information not available 08/22/2021 On What Date Was Tobacco Cessation Counseling Provided? 02/23/2025 Information not available 02/23/2025 How Many Years Have You Smoked Tobacco? 29 [email or web address] Information not available 11/29/2015 Do You Or Have You Ever Used Any Other Forms Of Tobacco Or Nicotine? No Information not available 12/25/2022 Sex: Female Functional Status Question Answer Note LastModified by Organizat ion Details LastModified Time Are you able to care for yourself? Yes Information not available 02/03/2021 What is your exercise level? Occasional Information not available 07/22/2018 Mental Status None recorded. Family History Relationship Description Onset Age of this Age Resolved Age Notes LastModified by Organization Details LastModified Time Mother Diabetes mellitus [email or web address] Not available 2015 14:21:03 Mother Heart disease [email or web address] Not available 2015 14:21:03 Mother Cerebrovascu lar accident [email or web address] Not available 11/2015 14:21:03 Paternal Grandmother Diabetes mellitus [email or web address] Not available 2015 14:21:03 Medical History Condition Response Coronary Artery Disease N Other N High Blood Pressure Y Atrial Fibrillation N Kidney or Bladder Problems Y Thyroid Problems N GI Problems Y Depression Y COPD N Blood Clots N Skin Problems N Anemia N Heart Attack (ME) N Anxiety Disorder Y Diabetes Y Muscle, Joint, or Bone Problems Y Seizures/Epilepsy N Acid Reflux (GERD) Y Cancer N Stroke N Asthma Y Allergies Y High Cholesterol Y Hepatitis N Liver Disease Y Headaches Y Osteoporosis N Heart Failure N Gynecological History Statement/Question Response Date of Last Mammogram 07/16/2023 STIs/STDs N HPV Vaccine N Most Recent Mammogram 08/07/2018 Age at Menarche 6 Current Control Method Tubal Ligat ion Age at First Child 16 Sexually Active? Y Menses Monthly N Date of Last Pap Smear 01/06/2024 Sexual Problems? N LMP Unknown Desired Control Method None Obstetrics History GPAL:G 10 P 7 1 2 8 Type Value Multiple Births 0 Full Term 7 Induced 0 Spontaneous 1 Premature 1 Living 8 Ectopics 1 Total 10 Immunizations Vaccine Type Date Status Note Provider Nam e and Address Organization Details Recorded Time COVID-19, mRNA, LNP-S, PF, 100 mcg/0.5mL dose or 50 mcg/0.25mL dose 1 completed Not Available [facility] 12/05/2023 13:57:26 Influenza, split virus, quadrivalent, preservative 6 completed Not Available [facility] 11/14/2019 02:32:34 Influenza, split virus, quadrivalent, preservative 7 completed Not Available [facility] 11/14/2019 02:39:19 Influenza, split virus, quadrivalent, PF 8 completed Not Available [facility] 11/14/2019 02:36:27 Influenza, split virus, quadrivalent, preservative 9 completed Not Available [facility] 11/14/2019 02:41:29 Influenza, split virus, quadrivalent, preservative 0 completed Corin Tariq [facility] 08/04/2020 12:44:08 Past Encounters Encounter ID Performer Location Encounter Start Date Encounter Closed Date Diagnosis/Indication Diagnosis SNOMED-CT Code Diagnosis ICD10 Code Diagnosis Note [id number] ERIKA Devries (Adult Med) [address] [place] [address] [phone] 11/29/2015 13:53:23 11/29/2015 14:57:20 Neuropathy 283579872 G62.9 Uncontroll ed type 2 diabetes mellitus 948094431 E11.65 Hyperlipidemia 04166837 E78.5 Vitamin D deficiency 347 31887 E55.9 Vitamin B1 2 level below reference range 932955698 R79.9 Essential hypertension 76979024 I10 Depressive disorder 3548 9007 F32.9 Gastroesop hageal reflux disease 800567325 K21.9 Bacterial vaginosis 4197 46537 N76.0 [id number] ERIKA Devries (Adult Med) [address] [place] [address] [id number] 01/27/2016 09:40:52 01/27/2016 11:12:27 Uncontrolled type 2 diabetes mellitus 488177225 E11.65 Vitamin D deficiency 347 45739 E55.9 Hyperlipidemia 39341432 E78.5 Gastroesop hageal reflux disease 710543857 K21.9 Essential hypertension 02540315 I10 Depressive disorder 3548 9007 F32.9 Neuropathy 341569864 G62 .9 [id number] ERIKA Devries (Adult Med) [address] [place] [address] [id number] 03/30/2016 09:48:58 03/30/2016 11:18:27 Essential hypertension 74269103 I10 Uncontroll ed type 2 diabetes mellitus 135202644 E11.65 Vitamin D deficiency 347 94766 E55.9 Neuropathy 817428931 G62 .9 Hyperlipidemia 24829600 E78.5 Gastroesop hageal reflux disease 891969968 K21.9 Irritable bowel syndrome with diarrhea 014613064 K58.0 [id number] MD Osmin Salgado (Adult Med) [address] [place] [address] [id number] 06/22/2016 09:41:53 06/22/2016 10:43:41 Bacterial vaginosis 420558275 N76.0 Vitamin B1 2 level below reference range 079278030 R79.9 Depressive disorder 3548 9007 F32.9 Essential hypertension 37433509 I10 Gastroesop hageal reflux disease 859503256 K21.9 Hyperlipidemia 88415432 E78.5 Irritable bowel syndrome with diarrhea 956580887 K58.0 Uncontroll ed type 2 diabetes mellitus 864035692 E11.65 Vitamin D deficiency 347 74860 E55.9 Neuropathy 225158301 G62 .9 [id number] ERIKA Devries (Adult Med) [address] [place] [address] [id number] 08/17/2016 11:27:43 08/17/2016 12:54:19 Gastroesophageal reflux disease 865927932 K21.9 Vitamin D deficiency 347 89694 E55.9 Neuropathy 744188885 G62 .9 Uncontroll ed type 2 diabetes mellitus 815717421 E11.65 Anxiety 57462398 F41.9 Administra tion of influenza vaccine 63616837 Z23 [id number] Oxana Diop MD [facility] (Adult Med) [address] [place] [address] [id number] 10/16/2016 09:42:07 10/16/2016 10:30:21 Essential hypertension 77458297 I10 Hyperlipidemia 82340607 E78.5 Uncontroll ed type 2 diabetes mellitus 681791339 E11.65 Neuropathy 056975155 G62 .9 Depressive disorder 3548 9007 F32.9 Vitamin D deficiency 347 83512 E55.9 Gastroesop hageal reflux disease 811634830 K21.9 Vitamin B1 2 level below reference range 287115880 R79.9 Anxiety 04870710 F41.9 [id number] Oxana Diop MD [facility] (Adult Med) [address] [place] [address] [id number] 12/25/2016 10:19:59 12/25/2016 11:27:54 Uncontrolled type 2 diabetes mellitus 454859126 E11.65 Neuropathy 967154555 G62 .9 Vitamin D deficiency 347 13046 E55.9 Depressive disorder 3548 9007 F32.9 Gastroesop hageal reflux disease 353088110 K21.9 Irritable bowel syndrome with diarrhea 893233186 K58.0 Hyperlipidemia 49121210 E78.5 Essential hypertension 13564064 I10 [id number] Oxana Diop MD [facility] (Adult Med) [address] [place] [address] [id number] 02/19/2017 09:41:09 02/19/2017 17:14:15 Hyperlipidemia 62575844 E78.5 Uncontroll ed type 2 diabetes mellitus 795257136 E11.65 Neuropathy 503978038 G62 .9 Depressive disorder 3548 9007 F32.9 Vitamin D deficiency 347 02373 E55.9 Gastroesop hageal reflux disease 451350926 K21.9 Vitamin B1 2 level below reference range 641994765 R79.9 Essential hypertension 50255632 I10 Anxiety 44046595 F41.9 [id number] Oxana Diop MD [facility] (Adult Med) [address] [place] [address] [id number] 05/01/2017 09:19:48 05/02/2017 11:51:33 Uncontrolled type 2 diabetes mellitus 832342806 E11.65 Hyperlipidemia 50159809 E78.5 Essential hypertension 27097896 I10 Depressive disorder 3548 9007 F32.9 Vitamin D deficiency 347 85032 E55.9 Irritable bowel syndrome with diarrhea 038129959 K58.0 Vitamin B1 2 level below reference range 390419131 R79.9 Neuropathy 390558754 G62 .9 Gastroesop hageal reflux disease 240235511 K21.9 [id number] [facility] [address] [place] [address] [id number] 07/02/2017 10:40:25 07/02/2017 11:44:44 Injury of hip and thigh 325882091 S79.912A Uncontroll ed type 2 diabetes mellitus 239696803 E11.65 [id number] [facility] [address] [place] [address] [id number] 09/03/2017 10:18:44 09/03/2017 11:21:15 Administration of influenza vaccine 25706885 Z23 Uncontroll ed type 2 diabetes mellitus 810512442 E11.65 Neuropathy 209173949 G62 .9 Depressive disorder 3548 7 F32.9 Vitamin D deficiency 347 05760 E55.9 Gastroesop hageal reflux disease 994523226 K21.9 Essential hypertension 28321877 I10 Hyperlipidemia 68733849 E78.5 Injury of hip and thigh 181659182 S79.912A left [id number] MD Osmin Cooney (Adult Med) [address] [place] [address] [id number] 12/04/2017 10:28:28 12/04/2017 11:40:20 Gastroesophageal reflux disease 880662407 K21.9 Neuropathy 440066070 G62 .9 Uncontroll ed type 2 diabetes mellitus 974276062 E11.65 Hyperlipidemia 30007442 E78.5 Essential hypertension 58059305 I10 Obese 810250393 E66.9 Greater tr ochanteric pain syndrome 9310456 M70.62 [id number] MD Osmin Cooney (Adult Med) [address] [place] [address] [id number] 03/03/2018 11:09:57 03/03/2018 14:45:04 Uncontrolled type 2 diabetes mellitus 883322410 E11.65 Screening for malignant neoplasm of breast 720018100 Z12.31 [id number] MD Osmin Cooney (Adult Med) [address] [place] [address] [id number] 04/10/2018 16:12:10 04/14/2018 09:33:12 Strain of tendon of foot and ankle 553391560 S96.911A [id number] Oxana Diop MD [facility] (Adult Med) [address] [place] [address] [id number] 04/28/2018 10:10:30 04/28/2018 11:10:41 Essential hypertension 53823984 I10 Hyperlipidemia 73111518 E78.5 Uncontroll ed type 2 diabetes mellitus 161770077 E11.65 Neuropathy 814451430 G62 .9 Vitamin D deficiency 347 87818 E55.9 Gastroesop hageal reflux disease 276318181 K21.9 [id number] MD Osmin Cooney (Adult Med) [address] [place] [address] [id number] 06/10/2018 10:36:28 06/10/2018 11:33:25 Uncontrolled type 2 diabetes mellitus 416997520 E11.65 Neuropathy 403523126 G62 .9 [id number] MD Osmin Herrera ([employer]PERATIONS MANAGER) [address] [place] [address] [id number] 07/22/2018 14:39:58 07/22/2018 16:23:03 Gynecologic examination 54852010 Z01.419 Exposure t o sexually transmissible disorder 101396603 Z20.2 Screening mammography 24 586869 Z12.31 Candidiasis of skin 4988 3006 B37.2 [id number] MD Osmin Cooney (Adult Med) [address] [place] [address] [id number] 08/11/2018 09:37:35 08/11/2018 11:06:46 Administration of influenza vaccine 42547992 Z23 Hyperlipidemia 60141919 E78.5 Uncontroll ed type 2 diabetes mellitus 643716574 E11.65 Anxiety 13927574 F41.9 Irritable bowel syndrome with diarrhea 831118762 K58.0 Essential hypertension 31051926 I10 [id number] [facility] [address] [place] [address] [id number] 10/13/2018 09:28:38 10/13/2018 10:41:10 Uncontrolled type 2 diabetes mellitus 657896569 E11.65 Hyperlipidemia 62279010 E78.5 Essential hypertension 04728215 I10 Greater tr ochanteric pain syndrome 6463547 M70.62 Obese 171745675 E66.9 Anxiety 21521785 F41.9 Vitamin B1 2 level below reference range 687822545 R79.9 Irritable bowel syndrome with diarrhea 416739200 K58.0 Gastroesop hageal reflux disease 158643710 K21.9 Vitamin D deficiency 347 55285 E55.9 Depressive disorder 3548 9007 F32.9 Neuropathy 728819700 G62 .9 [id number] [facility] [address] [place] [address] [id number] 0 11/12/2018 09:42:49 11/18/2018 09:19:01 Greater trochanteric pain syndrome 6850009 M70.62 Sprain of left ankle 291 2682565 9523362 S93.402A Injury of hip and thigh 244756000 S79.912A left Vitamin B1 2 level below reference range 339679728 R79.9 Irritable bowel syndrome with diarrhea 133513493 K58.0 Gastroesop hageal reflux disease 153781020 K21.9 Vitamin D deficiency 347 64116 E55.9 Depressive disorder 3548 9007 F32.9 Hyperlipidemia 28492568 E78.5 Essential hypertension 71703123 I10 [id number] MD Osmin Cooney (Adult Med) [address] [place] [address] [id number] 0 12/16/2018 09:22:02 12/17/2018 12:07:57 Injury of hip and thigh 598389940 S79.912A left Neuropathy 014765360 G62 .9 Uncontroll ed type 2 diabetes mellitus 337538063 E11.65 Sprain of left ankle 882 6277782 6894079 S93.402A Greater tr ochanteric pain syndrome 6525411 M70.62 Obese 347764966 E66.9 Anxiety 49825468 F41.9 Irritable bowel syndrome with diarrhea 677680734 K58.0 Gastroesop hageal reflux disease 299110425 K21.9 Vitamin D deficiency 347 20567 E55.9 Depressive disorder 3548 9007 F32.9 Hyperlipidemia 06193807 E78.5 Essential hypertension 68387097 I10 [id number] Oxana Diop MD [facility] (Adult Med) [address] [place] [address] [id number] 02/13/2019 09:24:40 02/13/2019 10:22:43 Pain in left lower limb 067465507 M79.605 Sprain of left ankle 588 1798074 6330482 S93.402A Obese 077652160 E66.9 Gastroesop hageal reflux disease 358606229 K21.9 Vitamin D deficiency 347 27541 E55.9 Depressive disorder 3548 9007 F32.9 Neuropathy 150661206 G62 .9 Hyperlipidemia 50981428 E78.5 Essential hypertension 47357109 I10 Type 2 gema betes mellitus 75433269 E11.9 [id number] Oxana Diop MD [facility] (Adult Med) [address] [place] [address] [id number] 04/15/2019 10:15:09 04/15/2019 11:46:43 Type 2 diabetes mellitus 94847802 E11.9 Hypokalemia 22259968 E87 .6 Obese 008002344 E66.9 Gastroesop hageal reflux disease 670081979 K21.9 Vitamin D deficiency 347 69946 E55.9 Essential hypertension 85606802 I10 Acute urin toby tract infection 433426055 N39.0 Uncontroll ed type 2 diabetes mellitus 318002241 E11.65 Hyperlipidemia 53523654 E78.5 Depressive disorder 3548 9007 F32.9 Anxiety 43809014 F41.9 Greater tr ochanteric pain syndrome 6299631 M70.62 Sprain of left ankle 948 6573294 4970445 S93.402A [id number] ERIKA Devries (Adult Med) [address] [place] [address] [id number] 06/17/2019 09:41:27 06/17/2019 10:57:57 Type 2 diabetes mellitus 19050969 E11.9 Increased frequency of urination 748870180 R35.0 Irritable bowel syndrome with diarrhea 056574957 K58.0 Screening for malignant neoplasm of breast 600720286 Z12.31 Screening for malignant neoplasm of colon 517426254 Z12.11 [id number] MD Osmin Cooney (Adult Med) [address] [place] [address] [id number] 0 08/18/2019 10:02:08 08/18/2019 11:10:21 Candidiasis of skin 54221771 B37.2 Acute sinusitis 57759384 J01.90 Sprain of left ankle 186 2874485 9517984 S93.402A Type 2 gema betes mellitus 18934062 E11.9 Greater tr ochanteric pain syndrome 4835884 M70.62 Obese 174830930 E66.9 Gastroesop hageal reflux disease 307991127 K21.9 Vitamin D deficiency 347 34548 E55.9 Neuropathy 298064030 G62 .9 Hyperlipidemia 07968698 E78.5 Essential hypertension 65474877 I10 [id number] [facility] [address] [place] [address] [id number] 10/13/2019 09:45:25 10/13/2019 10:44:42 Type 2 diabetes mellitus 01801291 E11.9 Screening for malignant neoplasm of breast 709595330 Z12.31 Essential hypertension 78517170 I10 Gastroesop hageal reflux disease 234560996 K21.9 Hyperlipidemia 33968024 E78.5 Administra tion of influenza vaccine 91200678 Z23 Anxiety 36690062 F41.9 Vitamin B1 2 level below reference range 315129184 R79.9 Depressive disorder 3548 9007 F32.9 Irritable bowel syndrome with diarrhea 721258746 K58.0 Neuropathy 317684447 G62 .9 Obese 793030531 E66.9 Greater tr ochanteric pain syndrome 9949369 M70.62 Vitamin D deficiency 347 72971 E55.9 [id number] MD Osmin Herrera ([employer] OPERATIONS MANAGER) [address] [place] [address] [id number] 11/10/2019 10:13:43 11/10/2019 12:34:31 Screening mammography 57493120 Z12.31 Female str ess incontinence 23700536 N39.3 Uncontroll ed type 2 diabetes mellitus 589987197 E11.65 Obese 269540611 Z68.43 [id number] MD Osmin Cooney (Adult Med) [address] [place] [address] [id number] 0 12/15/2019 10:17:05 12/15/2019 11:23:00 Type 2 diabetes mellitus 03997430 E11.9 Essential hypertension 72777287 I10 Anxiety 58937192 F41.9 Depressive disorder 3548 9007 F32.9 Gastroesop hageal reflux disease 364127794 K21.9 Hyperlipidemia 71539400 E78.5 Neuropathy 719210663 G62 .9 Obese 304028925 E66.9 Vitamin D deficiency 347 56504 E55.9 [id number] ERIKA Devries (Adult Med) [address] [place] [address] [id number] 0 02/15/2020 10:12:10 02/18/2020 13:19:34 Type 2 diabetes mellitus 13191483 E11.9 Irritable bowel syndrome with diarrhea 847253971 K58.0 Anxiety 65702842 F41.9 Essential hypertension 60926535 I10 Gastroesop hageal reflux disease 442235942 K21.9 Hyperlipidemia 93119145 E78.5 Neuropathy 011972260 G62 .9 Obese 838394302 E66.9 Vitamin D deficiency 347 97779 E55.9 Hypokalemia 66669013 E87 .6 [id number] MD Osmin Cooney (Adult Med) [address] [place] [address] [id number] 0 04/05/2020 08:16:46 04/05/2020 11:50:16 Anxiety 00824826 F41.9 Essential hypertension 31883037 I10 Gastroesop hageal reflux disease 409286479 K21.9 Hyperlipidemia 35488915 E78.5 Neuropathy 928650700 G62 .9 Obese 545932256 E66.9 Type 2 gema betes mellitus 68842634 E11.9 Vitamin D deficiency 347 06169 E55.9 Foot joint - painful on movement 991811180 M25.579 Depressive disorder 3548 9007 F32.9 [id number] [facility] [address] [place] [address] [id number] 0 06/06/2020 08:06:10 06/06/2020 12:58:45 Anxiety 72248203 F41.9 Sprain of left ankle 937 7882322 6308697 S93.402A Irritable bowel syndrome with diarrhea 649474079 K58.0 Type 2 gema betes mellitus 47597997 E11.9 Essential hypertension 74724433 I10 Depressive disorder 3548 9007 F32.9 Vitamin D deficiency 347 66608 E55.9 Hyperlipidemia 67526765 E78.5 Gastroesop hageal reflux disease 766512843 K21.9 Neuropathy 874628226 G62 .9 [id number] Oxana Diop MD [facility] (Adult Med) [address] [place] [address] [id number] 0 07/07/2020 16:01:10 07/12/2020 06:20:32 Fractured nasal bones 222763613 S02.2XXA Displacement of tooth 40 4527617 M26.30 2 front teeth Type 2 gema betes mellitus 29915306 E11.9 [id number] [facility] [address] [place] [address] [id number] 0 08/04/2020 10:02:19 08/05/2020 10:56:00 Type 2 diabetes mellitus 18679450 E11.9 Anxiety 81516514 F41.9 Administra tion of influenza vaccine 38444642 Z23 Vitamin B1 2 level below reference range 712941283 R79.9 Depressive disorder 3548 9007 F32.9 Essential hypertension 54969684 I10 Gastroesop hageal reflux disease 522431942 K21.9 Hyperlipidemia 58401802 E78.5 Obese 273298993 E66.9 Vitamin D deficiency 347 83490 E55.9 [id number] [facility] [address] [place] [address] [id number] 0 10/04/2020 09:48:30 10/04/2020 12:32:55 Anxiety 31435681 F41.9 Vitamin B1 2 level below reference range 825138402 R79.9 Depressive disorder 3548 9007 F32.9 Essential hypertension 33241002 I10 Hyperlipidemia 70924510 E78.5 Neuropathy 697487757 G62 .9 Obese 789762642 E66.9 Type 2 gema betes mellitus 63564157 E11.9 Vitamin D deficiency 347 40194 E55.9 [id number] MD Osmin Cooney (Adult Med) [address] [place] [address] [id number] 12/06/2020 07:50:22 12/06/2020 11:13:07 Anxiety 54703683 F41.9 Depressive disorder 3548 9007 F32.9 Essential hypertension 28955295 I10 Gastroesop hageal reflux disease 615519143 K21.9 Greater tr ochanteric pain syndrome 5251741 M70.62 Hyperlipidemia 26295216 E78.5 Increased frequency of urination 603220809 R35.0 Neuropathy 257772888 G62 .9 Type 2 gema betes mellitus 21377156 E11.9 Vitamin D deficiency 347 47576 E55.9 [id number] Jazmin Mullins MD [facility] [address] [place] [address] 12/29/2020 09:17:27 12/30/2020 08:25:45 Viral screening 582750805 Z11.52 D/w pt the current pandemic of COVID-19 and call for social isolation in order to blunt the curve and minimize risk and spread. Encouraged patient and family to take restrictio ns seriously. They have verbalized understand ing of such. Viral syndrome 384282293 B34.9 [id number] MD Osmin Cooney (Adult Med) [address] [place] [address] [id number] 0 02/03/2021 14:15:53 02/03/2021 14:54:31 Anxiety 85323265 F41.9 Type 2 gema betes mellitus 10203572 E11.9 Vitamin B1 2 level below reference range 910143593 R79.9 Depressive disorder 3548 9007 F32.9 Essential hypertension 82591109 I10 Foot joint - painful on movement 285223225 M25.579 Gastroesop hageal reflux disease 669290730 K21.9 Greater tr ochanteric pain syndrome 0366115 M70.62 Hyperlipidemia 31907153 E78.5 Hypokalemia 92701192 E87 .6 Neuropathy 432121117 G62 .9 Obese 224408051 E66.9 Sprain of left ankle 368 1415251 9034978 S93.402A Vitamin D deficiency 347 01014 E55.9 Irritable bowel syndrome with diarrhea 041573233 K58.0 [id number] MD Osmin Cooney (Adult Med) [address] [place] [address] [id number] 0 04/21/2021 14:13:58 04/21/2021 16:07:49 Type 2 diabetes mellitus 99101755 E11.9 Gastroesop hageal reflux disease 890239759 K21.9 Vitamin B1 2 level below reference range 486797638 R79.9 Hyperlipidemia 65234840 E78.5 Neuropathy 529501832 G62 .9 Vitamin D deficiency 347 55062 E55.9 [id number] ERIKA Devries (Adult Med) [address] [place] [address] [id number] 0 06/22/2021 08:55:35 06/22/2021 16:00:20 Bite of nonvenomous spider 464902522 W57.XXXA Type 2 gema betes mellitus 83985221 E11.9 Essential hypertension 41463620 I10 [id number] MD Osmin Cooney (Adult Med) [address] [place] [address] [id number] 0 08/22/2021 15:32:43 08/22/2021 16:13:57 Type 2 diabetes mellitus 93221529 E11.9 Neuropathy 682539235 G62 .9 Anxiety 53751334 F41.9 Vitamin B1 2 level below reference range 850746328 R79.9 Depressive disorder 3548 9007 F32.9 Essential hypertension 05236711 I10 Gastroesop hageal reflux disease 184227120 K21.9 Hyperlipidemia 37014132 E78.5 Vitamin D deficiency 347 03834 E55.9 [id number] MD Osmin Cooney (Adult Med) [address] [place] [address] 57945-729 0 11/02/2021 09:41:49 11/02/2021 10:21:27 Trigger finger of left hand 0019634993 8471965 M65.30 Increased frequency of urination 555415961 R35.0 Type 2 gema betes mellitus 38360708 E11.9 Neuropathy 717272414 G62 .9 Anxiety 31566755 F41.9 Depressive disorder 3548 9007 F32.9 Essential hypertension 14900062 I10 Gastroesop hageal reflux disease 062642471 K21.9 Hyperlipidemia 39197304 E78.5 Obese 675510137 E66.9 Vitamin D deficiency 347 56034 E55.9 [id number] MD Osmin Cooney (Adult Med) [address] [place] [address] [phone] 0 12/19/2021 10:23:29 12/19/2021 14:00:18 Dysuria 88619476 R30.9 Type 2 gema betes mellitus 05826806 E11.9 Neuropathy 462670507 G62 .9 Anxiety 61473609 F41.9 Vitamin B1 2 level below reference range 343098862 R79.9 Essential hypertension 29032079 I10 Gastroesop hageal reflux disease 838731387 K21.9 Greater tr ochanteric pain syndrome 6717417 M70.62 Hyperlipidemia 52300704 E78.5 Obese 701887745 E66.9 Vitamin D deficiency 347 46908 E55.9 [id number] MD Osmin Cooney (Adult Med) [address] [place] [address] 84649-291 0 02/16/2022 09:37:50 02/16/2022 10:50:33 Dysuria 40161340 R30.9 Vulvovaginitis 88304561 N76.0 Uncontroll ed type 2 diabetes mellitus 079809633 E11.65 [id number] MD Osmin Cooney (Adult Med) [address] [place] [address] 69181-043 0 03/19/2022 09:54:42 03/27/2022 07:47:40 HIV screening 318460915 Z11.4 Type 2 gema betes mellitus 76088281 E11.9 Anxiety 06761977 F41.9 Vitamin B1 2 level below reference range 933771076 R79.9 Depressive disorder 3548 9007 F32.9 Essential hypertension 67873829 I10 Greater tr ochanteric pain syndrome 1442579 M70.62 Hyperlipidemia 30152283 E78.5 Hypokalemia 67688609 E87 .6 Neuropathy 689195592 G62 .9 Obese 257861570 E66.9 Vitamin D deficiency 347 13456 E55.9 [id number] MD Osmin Cooney (Adult Med) [address] [place] [address] 15511-740 0 04/24/2022 10:38:45 04/25/2022 11:41:12 Failure to lose weight 92097041 R63.8 Gastroesop hageal reflux disease 088754470 K21.9 Greater tr ochanteric pain syndrome 9287959 M70.62 Hyperlipidemia 28823606 E78.5 Neuropathy 386443217 G62 .9 Type 2 gema betes mellitus 35569439 E11.9 Vitamin D deficiency 347 90416 E55.9 Vitamin B1 2 level below reference range 386967303 R79.9 Essential hypertension 58283155 I10 [id number] MD Osmin Cooney (Adult Med) [address] [place] [address] [phone] 0 08/03/2022 16:23:27 08/06/2022 11:12:55 Neuropathy 206923641 G62.9 Irritable bowel syndrome with diarrhea 763345764 K58.0 Uncontroll ed type 2 diabetes mellitus 271463972 E11.65 Renewal of prescription 691546283 Z76.0 Gastroesop hageal reflux disease 431603513 K21.9 Type 2 gema betes mellitus 19875688 E11.9 [id number] MD Osmin Dalal (Adult Med) [address] [place] [address] 63019-689 0 09/05/2022 10:45:41 09/05/2022 12:51:32 [id number] MD Osmin Cooney (Adult Med) [address] [place] [address] [phone] 0 10/08/2022 10:48:28 10/09/2022 16:04:30 Morbid obesity 404250296 E66.01 BMI is 43.8, she has been advised to watch her diet, exercise and lose some weight. Pain of le ft hip joint 2276764303 83741 M25.552 left hip[ pain. walks with walker. She agreed for the orthopedic evaluation . Lower abdominal pain 545 09047 R10.30 for about 6 years since her baby was born. Discussed with patient, she agreed for the image study. Administra tion of diphtheria, pertussis, and tetanus vaccine 187828246 Z23 She refused, 10-08-2022 2. Administra tion of pneumococcal vaccine 17356463 Z23 She refused 10-08-2022 . [id number] [facility] [address] [place] [address] [phone] 0 12/25/2022 15:19:52 12/27/2022 12:08:13 Anxiety 69976400 F41.9 On buspirone and venlafaxin e Essential hypertension 59824941 I10 Today 12-25-22. BP is 122/78. Low salt diet, Try to avoid NSAID or OTC decongesta nt, if possible. Gastroesop hageal reflux disease 423361510 K21.9 Refil omeprazole . Hyperlipidemia 20181481 E78.5 Low animal fat diet. Refill simvastati n. Neuropathy 659837589 G62 .9 Stable. left leg all ways [place], has jose treated by injection. Depressive disorder 3688 9007 F32.A Refill med. Greater tr ochanteric pain syndrome 7738499 M70.62 Refill med. Irritable bowel syndrome with diarrhea 522929277 K58.0 Refill med. Renewal of prescription 615719355 Z76.0 Type 2 gema betes mellitus 34069714 E11.65 Diabetic diet, exercise and keep the weight down. [id number] [facility] [address] [place] [address] [phone] 0 06/24/2023 09:40:43 06/25/2023 12:51:25 Screening mammography 45774514 Z12.31 Wants annual screening. Thigh pain 21069534 M79. 659 Left groin sore for one year, no palpable mass , no pain, she wants U/S but no Such item could be ordered on [facility], will do CT instead. Eye infection 189848014 H44.009 Red right eye. she siad that she has been bitten by spider . Agreed for abo eye drop. Smoker 50628952 F17.200 Advised her to quit smoking. Smokes one PK/day since age 6 Y/O for he past 50 years, lately cut down to about half pk/day. Agreed for LDC T screening. Essential hypertension 10194497 I10 Today 12-25-22. BP is 122/78. Low salt diet, Try to avoid NSAID or OTC decongesta nt, if possible. BP is 138/82 today 06-24-23, Will continue med and monitor BP. Greater tr ochanteric pain syndrome 8199308 M70.62 Refill med. Hypokalemia 91764791 E87 .6 Was checked in 2018, due to chlorthali done. Will check again later she agreed. Continue to refill potassium supplement . Neuropathy 098746671 G62 .9 Stable. left leg all ways [place], has jose treated by injection. Type 2 gema betes mellitus 61725407 E11.65 Diabetic diet, exercise and keep the weight down. Due same category of pharmacolo gic action of amarilis and rachell , will D/C farxiga Vitamin B1 2 level below reference range 729193855 R79.9 Her B12 level was 655 , 03-01-2017 , which is normal. .. Why the previous provider made such untruth diagnosis. ? Secondary polycythemia 88460324 D75.1 probably due to cigarettes smoking. Renewal of prescription 647753200 Z76.0 Anxiety 55410964 F41.9 On buspirone and venlafaxin e Depressive disorder 3548 9007 F32.A Refill med. Morbid obesity 188982239 E66.01 BMI is 43.8, she has been advised to watch her diet, exercise and lose some weight. As today 06-24-2023 . BMI down to 40.1. [id number] MD Osmin Cooney (Adult Med) [address] [place] [address] [phone] 0 07/08/2023 13:52:33 07/09/2023 10:43:44 Type 2 diabetes mellitus 92748331 E11.65 Diabetic diet, exercise and keep the weight down. Due same category of pharmacolo gic action of amarilis and rachell , will D/C braydenxiga. Ran out basaglar insulin shot since last september. Depressive disorder 3548 9007 F32.A Refill med. Essential hypertension 83263365 I10 Today 12-25-22. BP is 122/78. Low salt diet, Try to avoid NSAID or OTC decongesta nt, if possible. BP is 138/82 today 06-24-23, Will continue med and monitor BP. Greater tr ochanteric pain syndrome 4089530 M70.62 Refill med. Irritable bowel syndrome with diarrhea 663044480 K58.0 Refill med. Renewal of prescription 832567620 Z76.0 Neuropathy 278302720 G62 .9 Stable. left leg all ways [place], has jose treated by injection. Drug-induc ed hypokalemia 563086724 E87.6 Med refill. Hyperlipidemia 49820317 E78.5 Low animal fat diet. Refill simvastati n. Smoker 84187679 F17.200 Advised her to quit smoking. Smokes one PK/day since age 6 Y/O for he past 50 years, lately cut down to about half pk/day. Agreed for LDC T screening. She is aware of cigarettes smoking can cause permanet emphysema, cancer of lung, or throat , ot mouth and other disease. Screening for malignant neoplasm of cervix 818452762 Z12.4 Will refer to DRY WALL APPLICATOR. Morbid obesity 950118963 E66.01 BMI is 43.8, she has been advised to watch her diet, exercise and lose some weight. As today 06-24-2023 . BMI down to 40.1. [id number] Oxana Diop MD [facility] (Adult Med) [address] [place] [address] 09/05/2023 12:13:14 09/10/2023 15:40:22 Peripheral vascular disease 307979430 I73.9 Will re-issue arterial doppler, she is going to call hospital to schedule. Chronic ob structive pulmonary disease 71207786 J44.9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
== END 2025-03-04 12:30 | disposition home or self-care (01) ==
LOC: ANHAUDIO 12:32
PROVIDERS: PCP Physician Assistant; Visit Provider Emergency Medicine
DX: H93.12 Tinnitus, left ear (principal); H90.3 Sensorineural hearing loss, bilateral
CPT/HCPCS: 92557; 92567